=== PATIENT | female | born 1955 | race African-American/Black ===

== ENCOUNTER 2023-08-23 14:03 | Outpatient (AMB) | payer MEDICARE, SELFPAY ==
[2023-08-23 13:59] VITALS: BP 114/70; PULSE 86; O2SAT 99; BMI 25.1
--- NOTE | 2023-08-23 13:59 | HO.NEPHOV ---
HPI HPI Comments History of Present Illness Details Pleasant middle-aged woman with the resistant hypertension as essentially normal renal function here for follow-up. Today she has no specific renal issues. She has chronic low back pain due to L4-L5 disease. She has had steroid injections with minimal improvement PFSH Surgical History History of surgical removal of keloid Hx of tonsillectomy H/O: hysterectomy H/O section Family History Mother Mouth cancer Father Throat cancer Lung cancer Social History Household Members: Spouse Housing: House Alcohol intake: never Patient Tobacco Use Status: Never used Tobacco Vital Signs 08/23/23 13:59 Height 5 ft 3 in Weight 141 lb 8 oz BMI 25.1 BP 114/70 Blood Pressure Location Lt brachial Position Sitting Pulse 86 Pulse Source Pulse Oximeter Pulse Oximetry (%) 99 Oxygen Delivery Method Room Air Physical Exam Vital Signs: Last Vital Signs Pulse 86 08/23/23 13:59 BP 114/70 08/23/23 13:59 Pulse Ox 99 08/23/23 13:59 Oxygen Delivery Method Room Air 08/23/23 13:59 BMI result Body Mass Index 25.1 Const General: comfortable Nutritional Appearance: well nourished Orientation/consciousness: patient oriented x3 HEENT Head: No normal to inspection Mouth: moist mucous membranes Neck Neck: Yes supple and Yes no JVD Resp Auscultation: clear to auscultation bilaterally, no rales and rub present Cardio Jugular venous distension: no JVD Palpation: no palpable S3 and no palpable S4 Heart sounds: no rubs GI Palpation (GI): Soft to palpation and nontender Percussion: No Fluid wave present General: Yes no CVA tenderness Back/Spine/Pelvis Back: no CVA tenderness Skin General skin exam: no rashes or lesions noted Neuro General: patient oriented x3 Extrem General: Yes no pedal edema and No clubbing Assessment & Plan Assessment & Plan (1) HTN (hypertension): Code(s): I10 - Essential (primary) hypertension Plan Middle-aged woman with resistant hypertension and essentially normal renal function. Currently blood pressure is well controlled. She is able to tolerate all medications. Renal function stable. At this point I have not made any changes in her medications. Encouraged her to stand low-sodium diet. Self follow her closely along with the team Coding Level of Care Code Est Pt Level 3 (98010) Diagnoses HTN (hypertension) I10 Results Reviewed Results Reviewed: All labs labs reviewed MRI in February 2023 which revealed 4.4 x 3.8 x 2.1 cm circumscribed solid and cystic lesion posterior to left iliopsoas muscle is cystic neurogenic tumor is possible. Sarcomatous lesion in included in the differential diagnosis although a more infiltrative an aggressive appearance would be expected was the report Nephrology Results: No Data to Display
== END 2023-08-23 14:17 | disposition home or self-care (01) ==
PROVIDERS: Visit Provider Internal Medicine Hypertension Specialist
DX: I10 Essential (primary) hypertension (principal)
CPT/HCPCS: 99213

== ENCOUNTER → 2023-08-23 14:03 | Outpatient (BNVA) | payer MEDICARE, SELFPAY | PROVIDERS: Visit Provider Internal Medicine Hypertension Specialist | DX: I10 Essential (primary) hypertension (principal) | CPT/HCPCS: 99212 ==

== ENCOUNTER 2023-09-22 09:17 | Outpatient (AMB) | payer OTHER, SELFPAY ==
--- NOTE | 2023-09-22 09:34 | HO.SPINEOV ---
Intake Intake Visit Reasons: Low back pain Intake Note: Mrs. Stephens is here today c/o low back pain. MRI done @ [place]. [employer] Required: No Allergies lisinopril Allergy (Intermediate, Verified 08/23/23 14:04) Cough Assessment & Plan Assessment & Plan (1) Back pain of lumbar region with sciatica: Code(s): M54.40 - Lumbago with sciatica, unspecified side Plan Dear Damon and Dr Martinez, Thank you for referring Mrs Stephens to our office today. She is a very nice 68-year-old female presents to the office today with a 1 year history of back pain traveling down both of her legs into the outer calf and ankle region. The pain is significantly aggravated with standing and walking. She has had a significant reduction in her quality of life over the last year because of the pain. She also has trouble at night, when she is turning over in bed she will get severe cramping and spasms down her legs. She has tried Tylenol, muscle relaxers and gabapentin. They do help her because it makes her tired which helps her sleep. She cannot take anti-inflammatories because of kidney disease. She underwent physical therapy without any relief. She had dry needling therapy without much success. She underwent 2 successive L4 bilateral TFE which gave her good relief but the affect only lasted a few weeks. She comes today to see us with an MRI showing severe collapse of the disc at L4-5 with bilateral foraminal stenosis. PMH: History of hypertension, stage 3 kidney disease, high cholesterol, recently diagnosed with a left psoas mass, suspected to be possible schwannoma. She is due to see a general surgeon in [place] to have this evaluated. History of 4 C sections, hysterectomy, hemorrhoidectomy, keloid removal, tonsillectomy Social hx: She does not smoke, denies any alcohol, or recreational substance abuse Medications: Losartan, metoprolol, estrogen, low-dose aspirin, tramadol, lorazepam, tizanidine, omeprazole, ammonium, clonidine, cyclobenzaprine, hydrochlorothiazide Allergies: Lisinopril Physical exam: Awake alert oriented no acute distress, full strength of bilateral lower extremities with the exception of some mild left iliopsoas weakness which seems to be related the pain. Reflexes absent at the patella. Imaging review: Lumbar MRI done at [facility] in April 2023 shows multilevel spondylosis, but most significantly at L4-5 a severely collapsed disc, worse on the left, with significant foraminal stenosis on the left and some mild bilateral lateral recess stenosis. Impression: 68-year-old female presents to the office today for evaluation of back pain and bilateral lower extremity pain which goes down into her calves and her outer ankle. She has failed conservative treatment with the exception of a very nice response to 2 consecutive bilateral L4 TFE's which gave her 2 weeks of tremendous relief. She has a severely collapsed disc at L4-5 with foraminal stenosis, worse on the left and some lateral recess stenosis as well. Given the response to the injection and the MRI findings, I think she is a good candidate for surgery. Typically this is a situation where Dr. Bill would choose to do spinal fusion because of back pain and leg pain. Usually this would be an oblique lumbar interbody fusion approach. Because of her history of abdominal surgeries and the psoas mass on the left, I will need to review this with him see if he deems this approach is acceptable. Another consideration would be at TLIF or a trans Kambin approach. I reviewed the risks, benefits associated with spinal fusion surgery as well as quoting success for improvement in leg pain at 90%. I will call the patient back once I have a chance to speak with Dr. Bill. I will get a set of upright flexion-extension x-rays as well. Thank you for allowing us to care for your patient. The total time spent with this visit with this patient was 45 minutes reviewing history, physical exam, lumbar imaging review, and implementation of treatment plan or further diagnostic testing Rc Bill MD,PhD [facility] Orders: Orders XR lumbar spine 4V min Today M54.40 - Lumbago with sciatica, unspecified side Coding Level of Care Code New Pt Level 4 (02161) Diagnoses Back pain of lumbar region with sciatica M54.40
== END 2023-09-22 10:10 | disposition home or self-care (01) ==
PROVIDERS: PCP Internal Medicine; Referring Provider Physician Assistant; Visit Provider Physician Assistant
DX: M54.40 Lumbago with sciatica, unspecified side (principal)
CPT/HCPCS: 99204

== ENCOUNTER 2023-09-22 09:17 | Outpatient (REF) | payer OTHER, SELFPAY ==
--- NOTE | ~2023-09-22 | XR_ITS ---
EXAMINATION: XR LUMBOSACRAL SPINE WITH OBLIQUES CLINICAL INFORMATION: Sciatica COMPARISON: None available. TECHNIQUE: AP and lateral and lateral flexion and extension views FINDINGS: Vertebral bodies are well aligned. There is mild dextroscoliosis and straightening of lumbar lordosis. There is narrowing of L2-L3, L4-L5 intervertebral disc spaces without instability on flexion and extension views. There is no evidence of spondylolysis or listhesis. Soft tissues unremarkable XR/XR lumbar spine 4V min IMPRESSION: Degenerative changes with narrowing of L2-L3, L4-L5 intervertebral disc spaces.
== END 2023-09-22 09:18 | disposition home or self-care (01) ==
LOC: HO.HOSX 09:17
PROVIDERS: PCP Internal Medicine; Visit Provider Physician Assistant
DX: M54.40 Lumbago with sciatica, unspecified side (principal)
CPT/HCPCS: 72110

== ENCOUNTER → 2023-12-06 13:30 | Outpatient (BNV) | payer OTHER, SELFPAY | PROVIDERS: Admitting Provider Neurological Surgery; PCP Internal Medicine; Visit Provider Internal Medicine | DX: Z01.810 Encounter for preprocedural cardiovascular examination (principal); M54.40 Lumbago with sciatica, unspecified side | CPT/HCPCS: 93010 ==

== ENCOUNTER 2023-12-06 13:41 | Outpatient (AMB) | payer OTHER, SELFPAY ==
--- NOTE | 2023-12-06 14:12 | A.SPINEOV_ITS ---
Intake Intake Visit Reasons: Discuss surgery Intake Note: Ms. Stephens is here today to Discuss Sx. Director Of Dementia Operations Required: No Allergies lisinopril Adverse Reaction (Intermediate, Verified 12/05/23 09:02) Cough Assessment & Plan Assessment & Plan (1) Lumbar stenosis with neurogenic claudication: Code(s): M48.062 - Spinal stenosis, lumbar region with neurogenic claudication Plan Dear colleague, On 12/06/2023, I saw for preoperative visit Sudha Stephens. She states that in the last month the severe radiating pain down her right leg has disappeared. She is still having neurogenic claudication symptoms preventing her from walking or standing. We discussed the transkambin oblique lateral lumbar interbody fusion scheduled 12/19/2023. I briefly hoped that we could do a nonfusion but after reviewing of the patient's imaging that shows a unilateral collapse of the L4-5 disc space I would like to proceed with the minimally invasive lumbar fusion. Christian Bill MD, PhD Spine Fellowship Trained Neurosurgeon Director, [facility] Coding Level of Care Code Est Pt Level 3 (27808) Diagnoses Lumbar stenosis with neurogenic claudication M48.062
== END 2023-12-06 14:42 | disposition home or self-care (01) ==
LOC: HO.HNS 13:41
PROVIDERS: PCP Internal Medicine; Visit Provider Neurological Surgery
DX: M48.062 Spinal stenosis, lumbar region with neurogenic claudication (principal)
CPT/HCPCS: 99213

== ENCOUNTER → 2023-12-06 13:41 | Outpatient (BNVA) | payer OTHER, SELFPAY | PROVIDERS: PCP Internal Medicine; Visit Provider Neurological Surgery ==

== ENCOUNTER 2023-12-18 09:47 | Inpatient (IN) | payer MEDICARE, SELFPAY ==
--- NOTE | 2023-12-06 | ECG_ITS ---
Test Reason : preop Blood Pressure : / mmHG Vent. Rate : 063 BPM Atrial Rate : 063 BPM P-R Int : 170 ms QRS Dur : 072 ms QT Int : 398 ms P-R-T Axes : 060 017 054 degrees QTc Int : 407 ms Normal sinus rhythm Normal ECG No previous ECGs available Referred By: Heidy Reardon Electronically Signed By:HAILEE FREEMAN
[2023-12-06 12:20] VITALS: BP 123/77; PULSE 68; RESP 18; O2SAT 98; BMI 25.5
--- NOTE | 2023-12-06 12:41 | HO.ANESPROP2 ---
Documented by User: Heidy Reardon NP 12/07/23 08:45 HPI - Anesthesia Eval Consult details Narrative: 68yo F for L4-5 Transkambin Lumbar Interbody Fusion No recent illness No CP/SOB with > 4 mets (working multiple jobs, helps care for young great grandchildren) GERD. ppi controlls Psoas mass (left). Further w/u post spine surgery. Does not cause any symptoms Thrush. Current tx with nystatin. Recurrance ~ 6 times. ? r/t to use of lorazepam PMFSH Active Problems Active Problems: All Active Problems (Updated 12/06/23 @ 12:30 by Rocio Villafana RN) Back pain of lumbar region with sciatica (Acute) HTN (hypertension) (Acute) Past Medical History Medical History Thrush Bronchitis Arthritis GERD (gastroesophageal reflux disease) Psoas mass Elevated cholesterol Chronic renal insufficiency Back pain HTN (hypertension) Family History Family History Mother Mouth cancer Father Throat cancer Lung cancer Family history of problems with anesthesia: No Surgical History Surgical History H/O colonoscopy Hx of excision of mass Hx of hemorrhoidectomy History of surgical removal of keloid Hx of tonsillectomy H/O: hysterectomy H/O section History of Problems with Anesthesia: No Social History Social History Household Members: Spouse Housing: House Are you a primary career based intervention coordinator to a significant other at home: No Do you presently have visiting nurse or other home services: No Alcohol intake: never Patient Tobacco Use Status: Former Tobacco user Quit Date: 1980 Tobacco use type: Cigarette Use of substances other than those prescribed or required for medical reasons: No Have you been hit, kicked, punched, or otherwise hurt by someone within the past year? If so, by whom?: No Are you DNR?: No Advance Directives: No ( is primary contact) Advance Directives Information Provided: Yes (as above noted) Advance Directives on File: No Recently lost weight without trying: No Eating poorly because of decreased appetite: No Nutrition Risks: No Nutritional Risk Poor oral hygiene: No (upper & lower partials) Meds Allergies Allergy/AdvReac Type Severity Reaction Status Date / Time lisinopril AdvReac Intermediate Cough Verified 12/18/23 10:36 Home Medications Medication Instructions Recorded Confirmed Last Taken Type albuterol sulfate 90 mcg/actuation 2 puff inhalation Q4H PRN 08/23/23 12/06/23 Unknown History aerosol inhaler Shortness Of Breath Or Wheezing aspirin 81 mg tablet,delayed 81 mg PO QPM 08/23/23 12/18/23 12/17/23 History release (Adult Aspirin Regimen) atorvastatin 20 mg tablet 20 mg PO BEDTIME 08/23/23 12/18/23 12/17/23 History clonidine HCl 0.1 mg tablet 0.2 mg PO BEDTIME 08/23/23 12/18/23 12/17/23 History cyclobenzaprine 5 mg tablet 5 mg PO BEDTIME PRN Muscle Spasm 08/23/23 12/06/23 Unknown History gabapentin 600 mg tablet 300 mg PO TID 08/23/23 12/18/23 12/17/23 History hydrochlorothiazide 25 mg tablet 25 mg PO QPM 08/23/23 12/18/23 12/17/23 History lorazepam 0.5 mg tablet 0.5 mg PO DAILY PRN Anxiety 08/23/23 12/18/23 12/18/23 History losartan 100 mg tablet 100 mg PO QPM 08/23/23 12/18/23 12/17/23 History magnesium oxide 400 mg (241.3 mg 400 mg PO QPM 08/23/23 12/18/23 12/17/23 History magnesium) tablet metoprolol succinate 100 mg 100 mg PO QPM 08/23/23 12/18/23 12/17/23 History tablet,extended release 24 hr omeprazole 20 mg capsule,delayed 20 mg PO QPM 08/23/23 12/18/23 12/17/23 History release tizanidine 4 mg tablet 4 mg PO BID PRN Muscle Spasm 08/23/23 12/06/23 Unknown History trazodone 100 mg tablet 100 mg PO BEDTIME 08/23/23 12/18/23 12/17/23 History Exam Height,Weight and Vital Signs: Height 5 ft 3 in Weight 65.317 kg Last Vital Signs Pulse 68 12/06/23 12:20 Resp 18 12/06/23 12:20 BP 123/77 12/06/23 12:20 Pulse Ox 98 12/06/23 12:20 O2 Del Method Room Air 12/06/23 12:20 Pertinent Lab Results Pertinent Lab Results: Laboratory Last Values WBC 7.9 X10*3/uL (4.8-10.8) 12/06/23 13:20 RBC 4.91 X10*6/uL (4.20-5.50) 12/06/23 13:20 Hgb 13.7 g/dl (12.0-16.0) 12/06/23 13:20 Hct 43.1 % (37.0-47.0) 12/06/23 13:20 MCV 87.8 fL (80.0-98.0) 12/06/23 13:20 MCH 27.9 pg (27.0-33.0) 12/06/23 13:20 MCHC 31.8 g/dl (31.0-35.0) 12/06/23 13:20 RDW 14.6 % (11.0-16.0) 12/06/23 13:20 Plt Count 296 X10*3/uL (160-400) 12/06/23 13:20 MPV 9.2 fL (9.4-12.3) L 12/06/23 13:20 Absolute Nucleated RBC 0.000 X10*3/uL (0.0-0.012) 12/06/23 13:20 Nucleated RBC % (auto) 0.0 /100WBC (0.0-0.2) 12/06/23 13:20 Sodium 138 mmol/L (135-145) 12/06/23 13:20 Potassium 4.1 mmol/L (3.3-5.1) 12/06/23 13:20 Chloride 100 mmol/L (96-108) 12/06/23 13:20 Carbon Dioxide 31 mmol/L (22-29) H 12/06/23 13:20 Anion Gap 11 (12-20) L 12/06/23 13:20 BUN 24 mg/dL (9-16) H 12/06/23 13:20 Creatinine 1.20 mg/dL (0.5-1.4) 12/06/23 13:20 Estim Creat Clear Calc 39.6 12/06/23 13:20 Estimated GFR 44 12/06/23 13:20 Random Glucose 94 mg/dL (60-115) 12/06/23 13:20 Calcium 10.0 mg/dL (8.4-10.2) 12/06/23 13:20 Narrative Narrative: EKG 11/2023 Vent. Rate : 063 BPM Atrial Rate : 063 BPM P-R Int : 170 ms QRS Dur : 072 ms QT Int : 398 ms P-R-T Axes : 060 017 054 degrees QTc Int : 407 ms Normal sinus rhythm Normal ECG No previous ECGs available Airway Mallampati Class: II TM Dist: >3cm Neck ROM: Full Partial: Upper and Lower Heart: RRR Lungs: CTAB Assessment and Plan Assessment Anesthesia Assessment: Anesthesia Plan Discussed and PAT Visit Final Anesthetic Review Family History of Problems with Anesthesia: No History of Problems with Anesthesia: No Documented by User: Carmen Arriaza MD 12/18/23 11:45 PMFSH Active Problems Active Problems: All Active Problems (Updated 12/18/23 @ 11:22 by Carmen Arriaza MD) Back pain of lumbar region with sciatica (Acute) HTN (hypertension) (Acute) Intermittent cough this morning- Patient states tickle in throat from dryness Anxiety Insomnia Hyperlipidemia Past Medical History Medical History Thrush Bronchitis Arthritis GERD (gastroesophageal reflux disease) Psoas mass Elevated cholesterol Chronic renal insufficiency Back pain HTN (hypertension) Family History Family History Mother Mouth cancer Father Throat cancer Lung cancer Family history of problems with anesthesia: No Surgical History Surgical History H/O colonoscopy Hx of excision of mass Hx of hemorrhoidectomy History of surgical removal of keloid Hx of tonsillectomy H/O: hysterectomy H/O section History of Problems with Anesthesia: No Social History Social History Household Members: Spouse Housing: House Are you a primary career based intervention coordinator to a significant other at home: No Do you presently have visiting nurse or other home services: No Alcohol intake: never Patient Tobacco Use Status: Former Tobacco user Quit Date: 1980 Tobacco use type: Cigarette Use of substances other than those prescribed or required for medical reasons: No Have you been hit, kicked, punched, or otherwise hurt by someone within the past year? If so, by whom?: No Are you DNR?: No Advance Directives: No ( is primary contact) Advance Directives Information Provided: Yes (as above noted) Advance Directives on File: No Recently lost weight without trying: No Eating poorly because of decreased appetite: No Nutrition Risks: No Nutritional Risk Poor oral hygiene: No (upper & lower partials) Meds Allergies Allergy/AdvReac Type Severity Reaction Status Date / Time lisinopril AdvReac Intermediate Cough Verified 12/18/23 10:36 Home Medications Medication Instructions Recorded Confirmed Last Taken Type albuterol sulfate 90 mcg/actuation 2 puff inhalation Q4H PRN 08/23/23 12/06/23 Unknown History aerosol inhaler Shortness Of Breath Or Wheezing aspirin 81 mg tablet,delayed 81 mg PO QPM 08/23/23 12/18/23 12/17/23 History release (Adult Aspirin Regimen) atorvastatin 20 mg tablet 20 mg PO BEDTIME 08/23/23 12/18/23 12/17/23 History clonidine HCl 0.1 mg tablet 0.2 mg PO BEDTIME 08/23/23 12/18/23 12/17/23 History cyclobenzaprine 5 mg tablet 5 mg PO BEDTIME PRN Muscle Spasm 08/23/23 12/06/23 Unknown History gabapentin 600 mg tablet 300 mg PO TID 08/23/23 12/18/23 12/17/23 History hydrochlorothiazide 25 mg tablet 25 mg PO QPM 08/23/23 12/18/23 12/17/23 History lorazepam 0.5 mg tablet 0.5 mg PO DAILY PRN Anxiety 08/23/23 12/18/23 12/18/23 History losartan 100 mg tablet 100 mg PO QPM 08/23/23 12/18/2312/16/24 History magnesium oxide 400 mg (241.3 mg 400 mg PO QPM 08/23/23 12/18/23 12/17/23 History magnesium) tablet metoprolol succinate 100 mg 100 mg PO QPM 08/23/23 12/18/23 12/17/23 History tablet,extended release 24 hr omeprazole 20 mg capsule,delayed 20 mg PO QPM 08/23/23 12/18/23 12/17/23 History release tizanidine 4 mg tablet 4 mg PO BID PRN Muscle Spasm 08/23/23 12/06/23 Unknown History trazodone 100 mg tablet 100 mg PO BEDTIME 08/23/23 12/18/23 12/17/23 History Exam Height,Weight and Vital Signs: Height 5 ft 3 in Weight 65.317 kg Last Vital Signs Pulse 68 12/06/23 12:20 Resp 18 12/06/23 12:20 BP 123/77 12/06/23 12:20 Pulse Ox 98 12/06/23 12:20 O2 Del Method Room Air 12/06/23 12:20 Vital Signs Temp Pulse Resp BP Pulse Ox O2 Del Method 12/18/23 11:02 97.3 F 97 16 128/93 H 99 Room Air Airway Mallampati Class: II TM Dist: >3cm Neck ROM: Full Partial: Upper and Lower Loose/Missing/Broken Teeth: Yes (Partials top and bottom. Denies broken or loose teeth) Assessment and Plan Assessment Anesthesia Assessment: Anesthesia Plan Discussed, PAT Visit and Chart Reviewed Final Anesthetic Review Family History of Problems with Anesthesia: No History of Problems with Anesthesia: No NPO: Yes ASA Class: II Final Preanesthetic Review: No Changes in Pt Med Stat, Meds/Allgs Chart Reviewed, Consent Obtained/Reviewed and Anes Risks/Benef Reviewed Patient Risk: Intermediate Procedure Risk: Intermediate Assessment/Block/Sedation in SS: Assess/Block/Sedation-SS Anesthetic Plan Anesthetic Plan: GA Disposition: Standard PACU and Inp. Admit - Standard Bed
[2023-12-06 14:08] LABS: Hematocrit 43.1 % (37.0-47.0); Hemoglobin 13.7 g/dl (12.0-16.0); Mean Corpuscular HGB Conc 31.8 g/dl (31.0-35.0); Mean Corpuscular Hemoglobin 27.9 pg (27.0-33.0); Mean Corpuscular Volume 87.8 fL (80.0-98.0); Mean Platelet Volume 9.2 fL (9.4-12.3); Platelet Count 296 X10*3/uL (160-400); Red Blood Count 4.91 X10*6/uL (4.20-5.50); Red Cell Distribution Width 14.6 % (11.0-16.0); White Blood Count 7.9 X10*3/uL (4.8-10.8)
[2023-12-06 14:41] LABS: Anion Gap 11 (12-20); Blood Urea Nitrogen 24 mg/dL (9-16); Carbon Dioxide 31 mmol/L (22-29); Chloride 100 mmol/L (96-108); Creatinine Clr Calc Pharmacy 39.6; Estimated Glomerular Filt Rate 44; Glucose Random 94 mg/dL (60-115); Potassium 4.1 mmol/L (3.3-5.1); Sodium 138 mmol/L (135-145)
[2023-12-18] VITALS (12 sets, daily range): BP systolic 106–140; BP diastolic 68–93; PULSE 86–104; RESP 14–18; TEMP 36.1–36.5; O2SAT 94–100
--- NOTE | ~2023-12-18 | FL_ITS ---
EXAMINATION: XR FLUOROSCOPY WITH IMAGES CLINICAL INFORMATION: L4-L5 trans kambin lumbar interbody fusion COMPARISON: Lumbar spine 09/22/2023 TECHNIQUE: Fluoroscopy Supervised By: Dr. Bill. Fluoroscopy Time: 1.52 minutes. Cumulative Dose: 52.28 mGy. DAP: 16.921 Gycm2. Images: 2. FINDINGS: Fluoroscopic AP and lateral views of the L4 and L5 vertebral bodies with screws, fusion rods and interbody disc spacer are obtained. See intraoperative report for full details. FL/FL guidance in OR IMPRESSION: Fluoroscopic guidance was provided for L4-L5 trans kambin lumbar interbody fusion.
--- NOTE | 2023-12-18 07:04 | MHC.SHP ---
Pre-Procedural Eval Section A - 24 Hr Update-Section A only Date of Service: 12/18/23 The patient is an INPATIENT: No Changes since office visit: No Cold of Flu in the past 2 weeks, No New Medical Problems, No Changes in Medication and No Patient answered all questions The patient has been examined within 24 hours of the surgical procedure. The History & Physical has been completed within 30 days and I have reviewed it.: No Section B - Complete if H&P > 30 days Chief Complaint: Lumbago with sciatica, unspecified side Allergies: Allergies Allergy/AdvReac Type Severity Reaction Status Date / Time lisinopril AdvReac Intermediate Cough Verified 12/05/23 09:02 Review of Systems Sugical H&P ROS: Negative: Constitution, Cardiovascular, Respiratory, Neurological, Psychiatric, Hem-Onc, Allergic/Immunologic, Gastrointestinal, Genitourinary, Musculoskeletal, Integumentary, Endocrine and Eyes/Ears/Nose/Throat Exam Surgical H&P Exam: Not Evaluated: HEENT, Not Evaluated: Heart, Not Evaluated: Lungs, Not Evaluated: Extremities, Not Evaluated: Abdomen, Not Evaluated: Skin and Not Evaluated: Neurological Plan Diagnosis/Plan: Unchanged L4-5 Transkambin interbody fusion Time Spent With Patient Time: Total time managing care of this patient today 7____ minutes.
--- OUTSIDE RECORDS SUMMARY | 2023-12-18 09:50 | XMS_ITS | Continuity of Care Document ---
Author Name Unknown Organization [facility] Address [address] [place] [address]- Care Team Providers Care Application Development Intern Name Role Phone Not on Staff, PCP Primary Care Physician Unavail able Encounter [facility] Date(s): 07/15/23 - 07/15/[address] [address]- Discharge Disposition: A-D/C Home Attending Physician: Wili Guadarrama MD Admitting Physician: Wili Guadarrama MD Referring Physician: Not on Staff, Referring MD Allergies, Adverse Reactions, Alerts Substance Reaction Severity Status lisinopril Active Medications albuterol CFC free 90 mcg/inh inhalation aerosol 2, puffs, Inhalation, 4 times a day, PRN, # 1 each, Refills 0, Tot. Refills 0, Maintenance, 07/15/23 20:09:00 EDT, Aerosol, Route to Pharmacy Electronically, [id number], [facility] 1969, 160, cm, 07/15/23 18:38:00 EDT,... Start Date: 07/15/23 Status: Ordered Results Radiology Reports * Exam Date Time Procedure Performing Provider Status 07/15/23 7:03 PM Chest 2 Views Frontal and Lat Amilcar Abreu T; Auth (Verified) Notes: (Chest 2 Views Frontal and Lat) Reason For Exam: SOB;Cough RESULT: Chest 2 Views Frontal and Lat Chest 2 Views Frontal and Lat Hx of Present Illness: Body aches, nasal congestion, chest pain, and a non- productive cough x 2 weeks.; Reason: Cough; SOB; Clinical Question(s): Pneumonia; Special Instructions: This is a protocol film and radiologist should call any findings to the Charge Nurse or appropriate provider COMPARISON: None. FINDINGS: LINES AND TUBES: None. LUNGS AND PLEURA: Clear lungs. Normal pulmonary vascularity. No pleural effusion. No pneumothorax. HEART, MEDIASTINUM AND JHONATAN: Heart is normal in size. Normal mediastinal and hilar contour. BONES AND SOFT TISSUES: No acute abnormality. IMPRESSION: No acute abnormality. WSN: [id number] Ordering Physician: Guy Zepeda Dictated By: Jesus Luciano MD Dictated Date/Time: 07/15/23 7:08 pm Reviewed By: Jesus Luciano MD Signed By: Jesus Luciano MD Signed Date/Time: 07/15/23 7:08 pm Transcribed By: HAKAN Transcribed Date/Time: 07/15/23 7:08 pm Vital Signs Most recent to oldest [Reference Range]: 1 2 3 Height 160 cm (07/15/23 6:38 PM) Weight 65.2 kg (07/15/23 6:38 PM) Oxygen Saturation [94-100 %] 98 % (07/15/23 8:25 PM) 98 % (07/15/23 6:38 PM) 99 % (07/15/23 6:37 PM) Pulse Rate [55-90 bpm] 90 bpm (07/15/23 8:25 PM) 112 bpm *H* (07/15/23 7:32 PM) 88 bpm (07/15/23 6:38 PM) Blood Pressure [90-138/55-84 mm Hg] 150/80mm Hg *H* (07/15/23 8:25 PM) 140/88mm Hg *H* (07/15/23 6:38 PM) Respiratory Rate [16-30 br/min] 20 br/min (07/15/23 8:25 PM) 20 br/min (07/15/23 7:32 PM) 16 br/min (07/15/23 6:38 PM) Temperature [96.8-100.4 DegF] 98 DegF (07/15/23 6:38 PM) Mode of Delivery (Oxygen) Room air (07/15/23 6:38 PM) Room air (07/15/23 6:37 PM) Blood pressure sites Arm, left (07/15/23 8:25 PM) Arm, left (07/15/23 6:38 PM) Temperature Route Temporal (07/15/23 6:38 PM) Dry Weight 65.2 kg (07/15/23 6:38 PM) Weight Obtained Via Standing scale (07/15/23 6:38 PM) Dry Weight Obtained Via Standing scale (07/15/23 6:38 PM) Patient Care team information Care Team Personnel Name: Not on Staff, PCP Position: [facility] Physician (General Medicine) Member Role: PCP Name: Santi Robbins RN Position: [facility] ED RN W/OE and Tasks Member Role: Patient Care Provider Name: Wili Guadarrama MD Position: [facility] ED Medicine MD Member Role: Admitting Physician Address: Address: [address] [place] [address]- [place] [address]- Name: Shelby Berumen Position: [facility] ED [facility] Member Role: Wine Cellar Worker Care Team Related Persons Name: CHAKANURIA Address: [address] [address]
--- NOTE | 2023-12-18 09:55 | PHA.MEDREC ---
Pharmacy Consult ? Medication Reconciliation Pharmacy has completed the medication reconciliation. Reviewed med rec done by nursing
[2023-12-18] MEDS: Lactated Ringers 1,000 ML 100 ML IVCONT (10:08)
[2023-12-18] MEDS: Gabapentin 300 MG CAPSULE PO (10:09)
[2023-12-18] MEDS: methocarbamoL 750 MG TABLET PO (10:09)
--- NOTE | 2023-12-18 13:11 | W.PM.OPN ---
Operative Note Operative Note Date of Service: 12/18/23 Narrative: Preoperative diagnosis: 1) back pain and neurogenic claudication 2) lumbar degenerative disc disease L4-5; central spinal stenosis; lumbar spondylolisthesis Postprocedure diagnosis: 1) same as above Procedure: 1) L4-5 oblique lateral lumbar interbody fusion with discectomy, preparation of the endplates and placement of a titanium bullet cage packed with allograft, anterior to the transverse process in modified prone position, with intraoperative biplanar fluoroscopy imaging and electrophysiological monitoring 2) L4-5 posterior minimally invasive pedicle screw placement and posterior lateral instrumentation and fusion with intraoperative biplanar fluoroscopic imaging and electrophysiological monitoring 3 injection of 10 cc of Exparel at the L4 transverse process for a muscular erector spinae block and additional Exparel in paravertebral tissue for postop management Consent Informed Consent was obtained for this operation. I have explained the nature, purpose and benefits of the operation. I have discussed the risks and benefit of the operation including possible complications or adverse events with patient/family. Alternative(s) were discussed with the patient with their relative benefits and risks as well as the consequences of not accepting the operation were included in obtaining consent. Surgeon: TREVOR BARRETT MD, PHD Procedure Assisted By: orlin Hunter Description of Procedure: This is a complex surgery on the lumbar spine and an higher level teaching assistant as needed for safety of the surgery for setup of instrumentation, retraction and closing. History: This 68-year-old female suffering from back pain and bilateral leg pain with walking and standing. Initially shows a constant lumbar radiculopathy which improved. MRI shows unilateral disc collapse of the L4-5 disc space and associated central spinal stenosis and a grade 1 lumbar spondylolisthesis. The patient was offered an oblique lumbar lateral interbody fusion followed by a posterior lateral instrumented fusion L4-5. The procedure and complications were explained and the patient was consented. Procedure: The patient was brought to the operating room and endotracheally intubated. The patient was positioned on the Denilson spine table in a modified prone position for ease of access from the left side.. 2C arms were installed for fluoroscopy. Prepping and draping was done followed by timeout. The landmarks, including spinal processes, transverse processes, disc space, endplates and pedicles are identified and marked. The following steps are taken for each specified level: L4-5 level: Cage size 10 mm high and 33 mm long titanium . The patient was turned using the rotation of the surgical table so a near direct anterior lateral approach to the lumbar spine could be achieved. A small incision was then made superior to the mid iliac crest and then using biplanar fluoroscopy visualization, under electrophysiological monitoring and stimulation, we introduced an electrophysiological probe through the retroperitoneal space into the desired disc anterior to the transverse process and then passed it into the disc space after finding a silent window. The sleeve was retained and the probe was removed, then the K wire was passed sequentially into the disc space. A dilating tube was then passed along the same route. Following this, a working channel, a working channel was then passed sequentially into the disc space. The working channel was manually held in position while a series of disc cleaning tools were passed through the channel to remove the affected disc under clear and direct biplanar fluoroscopic visualization, decompress the nerve roots and equal corticated vertebral endplates at this segment. Arthrodesis of the intervertebral space via an anterior retroperitoneal exposure was achieved through Kambin's Stout and lateral extraforaminal space. Allograft was added into the anterior disc space. The working channel was then removed. A titanium interbody cage tightly packed with allograft was then inserted into the midportion of the intervertebral disc space over a K-wire under biplanar fluoroscopic visualization and intraoperative neuro monitoring. The inter pedicular and intradiscal space was significantly enlarged and disc height was restored to worked normal anatomy there for releasing pressure on the nerve roots visual largely the spinal canal and lateral recess as well as foramen were bilateral decompressed and all bones were confined to the borders of the disc space . The following steps are then taken for each specified level: L4-5 level: Left L5 screw with a diameter of 6.5 x 45 mm, right L5 screw with a diameter of 6.5 x 40 mm. Bilateral L5 screws with a diameter of 6.5 x 40 mm. The posterolateral fusion is initiated after the patient is rotated to a true prone position. The entry point to the pedicle is identified in the AP and lateral views and then the skin incision is injected with local anesthetic. We entered the pedicle with the pediguard tap after which a K-wire was introduced into the vertebral body. Additionally, I used a small periosteal decorticator along the screws to refresh the surface of the bone and facet and I put some amount of allograft for additional stability for the posterolateral fusion. Over the K-wire we insert pedicle screws bilaterally. After the screws were placed, we put the alyssa in place and under fluoroscopic imaging, we locked the alyssa in place and removed the screw tops and then each incision has been closed with 0 Vicryl for the fascia and a 3-0 Vicryl for the subdermal layer. Steri-Strips were used to approximate the incisions. An OpSite with Tegaderm was used to cover the incision. Final x-rays and AP and lateral projection showed good position of the interbody device and instrumentation. All sponge and needle counts were correct. The patient was extubated and transported in a stable condition to the recovery room. 2-0 Vicryl This procedure was done with the aid of a physician higher level teaching assistant as a qualified resident was not available. Anesthesia: General Estimated Blood Loss (ml): 15 mL Specimen: None Duration of Surgery: 50 minutes Postoperative Plan: Admit to inpatient
[2023-12-18] MEDS: Ketorolac Tromethamine 15 MG/ML VIAL IVPUSH ×2 (15:31→18:42)
[2023-12-18] MEDS: 0.9 % Sodium Chloride 1,000 ML 75 ML IVCONT (16:10)
[2023-12-18] MEDS: oxyCODONE HCl Immed Release 5 MG TABLET 10 MG PO ×2 (16:12→20:16)
[2023-12-18] MEDS: Gabapentin 600 MG TABLET 300 MG PO ×2 (16:13→20:16)
[2023-12-18] MEDS: Omeprazole 20 MG CAPSULE.DR PO (16:13)
[2023-12-18] MEDS: hydrOXYzine HCL 25 MG TABLET PO ×2 (16:13→20:17)
[2023-12-18] MEDS: Losartan Potassium 50 MG TABLET 100 MG PO (16:13)
[2023-12-18] MEDS: Metoprolol Succinate ER 100 MG TAB.ER.24H PO (16:13)
[2023-12-18] MEDS: Magnesium Oxide 400 MG TABLET PO (16:13)
[2023-12-18] MEDS: Acetaminophen 1,000 MG/100 ML PIGGYBACK 400 MG IV (18:42)
[2023-12-18] MEDS: ceFAZolin Sodium/Dextrose,Iso 2 GM/50 ML PIGGYBACK IV (19:11)
[2023-12-18] MEDS: hydroCHLOROthiazide 25 MG TABLET PO (20:16)
[2023-12-18] MEDS: traZODone HCL 100 MG TABLET PO (20:16)
[2023-12-18] MEDS: Docusate Sodium 100 MG CAPSULE PO (20:16)
[2023-12-18] MEDS: cloNIDine HCL 0.2 MG TABLET PO (20:17)
[2023-12-18] MEDS: Atorvastatin Calcium 20 MG TABLET PO (20:17)
[2023-12-19] MEDS: Acetaminophen 1,000 MG/100 ML PIGGYBACK 400 MG IV ×2 (00:14→06:20)
[2023-12-19] MEDS: ceFAZolin Sodium/Dextrose,Iso 2 GM/50 ML PIGGYBACK IV ×2 (00:34→06:43)
[2023-12-19 00:44] VITALS: RESP 18
[2023-12-19] MEDS: Ketorolac Tromethamine 15 MG/ML VIAL IVPUSH ×2 (02:04→07:40)
[2023-12-19 03:42] VITALS: BP 99/58; PULSE 72; RESP 16; TEMP 36.1; O2SAT 97
[2023-12-19] MEDS: hydrOXYzine HCL 25 MG TABLET PO (05:38)
[2023-12-19] MEDS: 0.9 % Sodium Chloride 1,000 ML 75 ML IVCONT (06:19)
[2023-12-19 06:50] VITALS: RESP 18
[2023-12-19 07:24] VITALS: BP 100/60; PULSE 73; RESP 14; TEMP 36.4; O2SAT 96
--- NOTE | 2023-12-19 07:26 | PM.DS ---
DS: Providers Provider Date of Service: 12/19/23 Date of admission: 12/18/23 09:47 Primary care physician: Laury Cartagena MD DS: Summary Time Attestation Discharge Coordination Time (in mins): 20 Quality: Safe Use of Opioids Does Pt have an Active Cancer Diagnosis on the Problem List?: No Quality: Stroke Does the patient have a stroke diagnosis?: No Physical Exam Vital Signs: Vital Signs: Last Vital Signs Temp 97.0 F 12/19/23 03:42 Pulse 72 12/19/23 03:42 Resp 18 12/19/23 06:50 BP 99/58 L 12/19/23 03:42 Pulse Ox 97 12/19/23 03:42 O2 Del Method Room Air 12/19/23 03:42 O2 Flow Rate 2 12/18/23 15:04 BMI result Body Mass Index 25.5 Discharge Plan Discharge Anticipated Discharge Date/Time: 12/19/23 07:26 Patient Disposition: Home, Self-Care Discharge Diagnosis: s/p L4-5 Transkambin lumbar fusion Referrals: Laury Cartagena MD [Primary Care Provider] - 1 Week Discharge Medications: New methocarbamol 750 mg tablet 750 mg PO TID Qty: 30 0RF hydroxyzine HCl 25 mg tablet 25 mg PO TID PRN (Reason: muscle cramping) Qty: 30 0RF oxycodone 5 mg tablet 5 mg PO Q6H PRN (Reason: severe pain (scale score 7-10)) Qty: 30 0RF Rx Instructions: Partial Fill upon patient request. acetaminophen 500 mg tablet 1,000 mg PO TID PRN (Reason: moderate pain) Qty: 42 0RF Continued cyclobenzaprine 5 mg tablet 5 mg PO BEDTIME PRN (Reason: Muscle Spasm) losartan 100 mg tablet 100 mg PO QPM metoprolol succinate 100 mg tablet extended release 24 hr 100 mg PO QPM gabapentin 600 mg tablet 300 mg PO TID lorazepam 0.5 mg tablet 0.5 mg PO DAILY PRN (Reason: Anxiety) clonidine HCl 0.1 mg tablet 0.2 mg PO BEDTIME tizanidine 4 mg tablet 4 mg PO BID PRN (Reason: Muscle Spasm) albuterol sulfate 90 mcg/actuation HFA aerosol inhaler 2 puff inhalation Q4H PRN (Reason: Shortness Of Breath Or Wheezing) trazodone 100 mg tablet 100 mg PO BEDTIME omeprazole 20 mg capsule,delayed release(DR/EC) 20 mg PO QPM hydrochlorothiazide 25 mg tablet 25 mg PO QPM magnesium oxide 400 mg (241.3 mg magnesium) tablet 400 mg PO QPM atorvastatin 20 mg tablet 20 mg PO BEDTIME aspirin [Adult Aspirin Regimen] 81 mg tablet,delayed release (DR/EC) 81 mg PO QPM Discharge Orders: Discharge Order (Routine); Ordered 12/19/23 Ordered By: Zheng Yun Diet: Advance to usual diet Activity on Discharge: As tolerated Stand Alone Forms: Patient Portal Discharge page Activity Restrictions/Additional Instructions: After your spinal surgery we ask you to observe the following restrictions/guidelines: Activity: With lumbar fusion surgery it is normal to have days in the first couple of weeks where you have increased leg pain. This usually lasts 1-2 days and self resolves with the continuation of medication. Attempt to stay mobile and continue activity as tolerated. It is normal to feel some discomfort as you increase your activity, but that will improve with time. We ask you avoid heavy lifting or activities that cause pain. As a general rule, 8lbs is a safe limit for lifting right after surgery. Walk as much as you feel comfortable but not to exhaustion. You will feel extra tired the first few days after surgery. Stay well hydrated. It is OK to walk up and down stairs You may return to driving when you are off narcotics (such as vicodin, oxycodone, dilaudid, etc), and you are back to normal functional capacity. If you have any concerns please check with office before driving. Return to work is specific to each patient and each surgery, so please speak with your doctor/PA at first follow up. Please bring paperwork such as FMLA at that time if you need it filled out. Medications: We have sent in prescriptions for Tylenol 1000 mg 3 times daily, hydroxyzine 25 mg 3 times daily, and Robaxin 750 mg 3 times daily. your currently prescribed gabapentin, please continue to take this as prescribed. We will give you a short supply of narcotics after surgery (usually one weeks worth). ??Please use this for breakthrough pain that is refractory to the Tylenol ibuprofen and gabapentin. If you need more please call the office but do not use more than prescribed. You will need to give our office 48 hours notice if you need narcotics refilled and we do not fill narcotics on weekends or evenings. If you are on a narcotic, it is a good idea to take a stool softener such as colace or senna to avoid constipation If you take blood thinner such as aspirin, Plavix, Coumadin, Effient, Eliquis etc for conditions such as Afib, DVT, Pulmonary embolus, coronary disease, stents etc please speak with your surgeon about specific details as to when you can resume these medications. You can resume NSAIDs on post op day 1 (eg: Motrin, Naproxen, etc). Follow up: Please call the office, , after surgery to arrange a 3 week follow up for wound check. Wound Care: You may remove your dressing on the first day after surgery. ?You may ?leave open to air. Please do not remove the steri strips underneath. they will fall off on their own in one week. IT IS NORMAL FOR THE WOUND TO OOZE OR BE BLOODY FOR A FEW DAYS AFTER SURGERY. ?IF THIS HAPPENS JUST PLACE NEW DRESSING OVER IT TO AVOID STAINING CLOTHES. You may shower on post op day # 1 We ask that you do not let the water soak the wound. If it does get wet, just towel dry lightly. Please do not scrub your incision or place any type of chemical/ointment on the wound. No tub baths, pools or jacuzzis for one month. If you have any leaking or redness from your wound, or fevers, please call office Care Plan Goals: Return to normal activity as tolerated. Health Concerns: None. Plan of Treatment: Follow-up in clinic in 2-3 weeks. Assessment: POD: 1 Procedure: s/p L4-5 Transkambin lumbar fusion Sudha was seen this morning sitting upright in bed on 3 South. Patient reports she is up walking around is otherwise doing well. She feels her symptoms are much better than pre-operatively. She reports no back pain and no lower extremity pain at this time. She is ambulating to bathroom and tolerating her diet. Afebrile, vital signs stable. No new neurological deficits. Back dressings have some staining without signs of hematoma. No active sanguineous drainage. Area is dry. Plan: Patient meets criteria to be medically discharged home. We did discuss the postoperative healing course for the surgery, and she was informed that the approach causes what we compare to a low-grade burn on the nerve which will likely cause her some residual leg pain in the coming days. She was encouraged to continue the postoperative medication regimen that we sent to her pharmacy. Zheng Bill MD,PhD [facility]
[2023-12-19] MEDS: Gabapentin 600 MG TABLET 300 MG PO (07:41)
[2023-12-19] MEDS: Docusate Sodium 100 MG CAPSULE PO (07:42)
[2023-12-19 07:45] VITALS: BP 100/60; PULSE 73; O2SAT 96
--- NOTE | 2023-12-19 08:40 | MHC.CM.PN ---
IMM DELIVERED PT LIVES WITH SPOUSE, IS INDEPENDENT WITH MOBILITY AND +DRIVES. EMPLOYED F/T. WILL DO HCP WHILE HERE. PCP DR. GUME MELLO DP: PT HAS BEEN MEDICALLY CLEARED FOR DC HOME, NO SERVICES. [facility] WILL TRANSPORT HOME. CM WILL CONTINUE TO FOLLOW FOR ANY CHANGE IN DC PLAN/NEEDS.
[2023-12-19] MEDS: oxyCODONE HCl Immed Release 5 MG TABLET PO (09:45)
--- NOTE | 2023-12-19 11:42 | HO.POSTANES ---
Post Anesthesia Evaluation Post Anesthesia Evaluation Date of Service: 12/19/23 Vital Signs: Vital Signs Temp Pulse Resp BP Pulse Ox O2 Del Method 12/19/23 07:45 73 100/60 96 12/19/23 07:24 97.5 F 73 14 100/60 96 Room Air 12/19/23 06:50 18 12/19/23 03:42 97.0 F 72 16 99/58 L 97 Room Air 12/19/23 00:44 18 Anesthesia: General Endotracheal-GETA Mental Status: Awake Pain Control: Satisfactory Nausea/Vomiting: None Hydration: Adequate Anesthesia-Related Issues: No Anes. Related Issues
== END 2023-12-19 10:04 | disposition home or self-care (01) | DRG 460 ==
LOC: HO.SSSA 09:49 → HO.S3 15:14
PROVIDERS: Nurse Practitioner; Admitting Provider Neurological Surgery; PCP Internal Medicine; Visit Provider Neurological Surgery
PROC: 0SG00A0 Fusion of Lumbar Vertebral Joint with Interbody Fusion Device, Anterior Approach, Anterior Column, Open Approach (ICD-10-PCS; principal; 2023-12-18 11:30)
DX: M48.062 Spinal stenosis, lumbar region with neurogenic claudication (principal); M51.36 Other intervertebral disc degeneration, lumbar region; D36.10 Benign neoplasm of peripheral nerves and autonomic nervous system, unspecified; E78.00 Pure hypercholesterolemia, unspecified; I12.9 Hypertensive chronic kidney disease with stage 1 through stage 4 chronic kidney disease, or unspecified chronic kidney disease; N18.30 Chronic kidney disease, stage 3 unspecified; Z87.891 Personal history of nicotine dependence; Z79.82 Long term (current) use of aspirin; Z79.899 Other long term (current) drug therapy
CPT/HCPCS: 36415; 80048; 85027; 93005; 97162; C1713; C9290; J0131; J0330; J0665; J0690; J1100; J1170; J1885; J2371; J2405; J2704; J3010; L8699

== ENCOUNTER → 2023-12-18 09:47 | Outpatient (BNV) | payer MEDICARE, SELFPAY | PROVIDERS: Admitting Provider Neurological Surgery; PCP Internal Medicine; Visit Provider Neurological Surgery | DX: M48.062 Spinal stenosis, lumbar region with neurogenic claudication (principal); M54.40 Lumbago with sciatica, unspecified side | CPT/HCPCS: 20930; 22558; 22612; 22840; 22853; 63056; 99499 ==

== ENCOUNTER 2024-01-09 13:14 | Outpatient (AMB) | payer MEDICARE, SELFPAY ==
--- NOTE | 2024-01-09 13:25 | A.SPINEOV_ITS ---
Intake Visit Reasons: 1st post op Intake Note: Ms. Stephens is here today for her 1st post-op appointment. Internal Grinder Set Up Operator Required: No Allergies lisinopril Adverse Reaction (Intermediate, Verified 01/09/24 13:25) Cough Assessment & Plan Assessment & Plan (1) Lumbar stenosis with neurogenic claudication: Code(s): M48.062 - Spinal stenosis, lumbar region with neurogenic claudication Category: Medical Plan Mrs Stephens is here in follow-up, she is about 3 weeks out from her L4-5 trans Kambin interbody fusion. Unfortunately, she has not seen any significant improvement in her preoperative leg pain. She is still getting pain into her thighs and down to her legs. She is also developed a tremor which she thinks may be related to the narcotics, but she is weaned off them the last few days and feels as though might be better. She has been just taking Tylenol for now. She has had some dizziness from time to time as well. On my exam she looks comfortable, she is slightly slow with standing, her wounds have all healed nicely, I examined her upper and lower extremities and she has good strength with normal reflexes, no La's sign. I reassured her that I suspect things will just improve with time but that if she still continues to have tremors hands over the next few weeks that she should follow up with her PCP just in light of her medical conditions to make sure that there is not some other issue going on. She also stopped her gabapentin so there may be some issues with that as well. I would like to see her back in 6 weeks with a set of x-rays. We discussed activity guidelines, restrictions expectations after lumbar fusion surgery. Rc Bill MD, PhD [facility] Orders: Orders XR lumbar spine 4V min Today M48.062 - Spinal stenosis, lumbar region with neurogenic claudication Coding Level of Care Code Global (74581) Diagnoses Lumbar stenosis with neurogenic claudication M48.062
== END 2024-01-09 13:46 | disposition home or self-care (01) ==
PROVIDERS: PCP Internal Medicine; Visit Provider Physician Assistant
DX: M48.062 Spinal stenosis, lumbar region with neurogenic claudication (principal)
CPT/HCPCS: 99024

== ENCOUNTER 2024-01-09 13:14 | Outpatient (REF) | payer MEDICARE, SELFPAY | END 2024-01-09 13:15 | disposition home or self-care (01) | LOC: HO.HOSX 13:14 | PROVIDERS: PCP Internal Medicine; Visit Provider Physician Assistant | DX: M48.062 Spinal stenosis, lumbar region with neurogenic claudication (principal) | CPT/HCPCS: 99212 ==

== ENCOUNTER 2024-02-19 13:18 | Outpatient (REF) | payer MEDICARE, SELFPAY ==
--- NOTE | ~2024-02-19 | XR_ITS ---
EXAMINATION: XR LUMBOSACRAL SPINE WITH FLEXION AND EXTENSION VIEWS CLINICAL INFORMATION: Spinal stenosis, lumbar region with neurogenic claudication COMPARISON: Lumbar spine 09/22/2023 TECHNIQUE: Standing AP, lateral, lateral flexion and extension views of the lumbar spine FINDINGS: There are 5 nonrib-bearing lumbar-type vertebral bodies. The height of vertebral bodies is well-maintained. There is posterior fusion with transpedicular screws and adjoining rods as well as interbody disc spacer at L4-L5. The hardware appears intact. There is mild retrolisthesis of L4 with respect to L5. The patient demonstrates marked limitation of flexion. There is no change in alignment with flexion. There is decrease retrolisthesis of L4 with L5 on extension. There is disc space narrowing at L2-L3. There is multilevel degenerative facet joint disease. XR/XR lumbar spine 4V min IMPRESSION: 1. Status post posterior fusion at L4-L5. No evidence of hardware complication. 2. Mild retrolisthesis of L4 with respect to L5. 3. Decreased retrolisthesis of L4 with L5 on extension.
== END 2024-02-19 13:19 | disposition home or self-care (01) ==
LOC: HO.HOSX 13:18
PROVIDERS: PCP Internal Medicine; Visit Provider Physician Assistant
DX: M48.062 Spinal stenosis, lumbar region with neurogenic claudication (principal); Z98.1 Arthrodesis status
CPT/HCPCS: 72110; 99212

== ENCOUNTER 2024-02-19 13:18 | Outpatient (AMB) | payer MEDICARE, SELFPAY ==
--- NOTE | 2024-02-19 13:33 | HO.SPINEOV ---
Intake Visit Reasons: 2nd post op with xrays Intake Note: Ms. Stephens is here today for 2nd post op Preparation Supervisor Canning Required: No Allergies lisinopril Adverse Reaction (Intermediate, Verified 01/09/24 13:25) Cough Assessment & Plan Assessment & Plan (1) Lumbar stenosis with neurogenic claudication: Code(s): M48.062 - Spinal stenosis, lumbar region with neurogenic claudication Category: Medical Plan Mrs Stephens is about 2 months out from her L4-5 trans can lumbar interbody fusion. Unfortunately, she has not had any improvement in the pain going down into her hips and thighs with standing and walking. This was 1 of the main symptoms that she had before surgery. In terms of back pain, she does have some left-sided discomfort but it has really the leg pains that are giving her an issue. I reviewed her x-rays today and examined her. Her strength is good in terms of the lower extremity motor function. She has slow getting up to move around. Her wounds have all healed nicely. Her x-rays show that she has good positioning of the hardware in the upright and flexion-extension views. I am wondering if she might not have some residual stenosis, so I am going to send her for an MRI of the lumbar spine and we can see her back once it is completed. Rc Bill MD, PhD [facility] Orders: Orders MR lumbar spine wo con Today M48.062 - Spinal stenosis, lumbar region with neurogenic claudication Coding Level of Care Code Global (20319) Diagnoses Lumbar stenosis with neurogenic claudication M48.062
== END 2024-02-19 14:30 | disposition home or self-care (01) ==
PROVIDERS: PCP Internal Medicine; Visit Provider Physician Assistant
DX: M48.062 Spinal stenosis, lumbar region with neurogenic claudication (principal)
CPT/HCPCS: 99024

== ENCOUNTER 2024-02-28 12:15 | Outpatient (AMB) | payer OTHER, SELFPAY ==
[2024-02-28 12:14] VITALS: BP 94/76; PULSE 76; O2SAT 99; BMI 25.3
--- NOTE | 2024-02-28 12:14 | HO.NEPHOV ---
Vital Signs 02/28/24 12:14 Height 5 ft 3 in Weight 143 lb BMI 25.3 BP 94/76 Blood Pressure Location Lt brachial Position Sitting Pulse 76 Pulse Source Pulse Oximeter Pulse Oximetry (%) 99 Oxygen Delivery Method Room Air Intake Visit Reasons: HTN / 6 MO FU/ Confirmed [employer] Cutter Required: No Accompanied by: Spouse Allergies lisinopril Adverse Reaction (Intermediate, Verified 02/28/24 12:17) Cough HPI Comments Details: Pleasant middle-aged woman with the resistant hypertension as essentially normal renal function here for follow-up. Today she has no specific renal issues. She has chronic low back pain due to L4-L5 disease. She has had steroid injections with minimal improvement 02/28/24 Underwent back surgery December 18, 2023 Still with pain NO edema PFSH Medical History Thrush Bronchitis Arthritis GERD (gastroesophageal reflux disease) Psoas mass Elevated cholesterol Chronic renal insufficiency Back pain HTN (hypertension) Surgical History (Updated 02/28/24 @ 12:17 by MIKE Vazquez) History of back surgery (~12/2023) H/O colonoscopy Hx of excision of mass Hx of hemorrhoidectomy History of surgical removal of keloid Hx of tonsillectomy H/O: hysterectomy H/O section Family History Mother Mouth cancer Father Throat cancer Lung cancer Social History Household Members: Family Housing: House Are you a primary healthcare advisory services manager to a significant other at home: No Do you presently have visiting nurse or other home services: No Alcohol intake: never Patient Tobacco Use Status: Former Tobacco user Tobacco use type: Cigarette service: No Physical Exam Vital Signs: Last Vital Signs Pulse 76 02/28/24 12:14 BP 94/76 02/28/24 12:14 Pulse Ox 99 02/28/24 12:14 Oxygen Delivery Method Room Air 02/28/24 12:14 BMI result Body Mass Index 25.3 Const General: comfortable; No acute distress Orientation/consciousness: patient oriented x3 Eyes General: appearance normal, both eyes and all related structures Visual Ramirez: normal visual ramirez by confrontation Neck Neck: Yes supple and Yes no JVD Resp Effort & Inspection: normal respiratory effort and respiratory effort not decreased Auscultation: rhonchi Cardio Palpation: no palpable S3 and no palpable S4 Heart sounds: no rubs GI Inspection: Yes normal to inspection Palpation (GI): Soft to palpation Percussion: Yes normal to percussion Auscultation: normal bowel sounds General: Yes no CVA tenderness Back/Spine/Pelvis Back: no CVA tenderness Skin General skin exam: no petechiae and no purpura Neuro General: patient oriented x3 and no focal motor deficits Extrem General: No clubbing and No edema Results Reviewed Nephrology Results: Hgb 13.7 g/dl (12.0-16.0) 12/06/23 WBC 7.9 X10*3/uL (4.8-10.8) 12/06/23 Plt Count 296 X10*3/uL (160-400) 12/06/23 Sodium 138 mmol/L (135-145) 12/06/23 Potassium 4.1 mmol/L (3.3-5.1) 12/06/23 Chloride 100 mmol/L (96-108) 12/06/23 Carbon Dioxide 31 mmol/L (22-29) H 12/06/23 BUN 24 mg/dL (9-16) H 12/06/23 Creatinine 1.20 mg/dL (0.5-1.4) 12/06/23 Calcium 10.0 mg/dL (8.4-10.2) 12/06/23 Assessment & Plan Assessment & Plan (1) HTN (hypertension): Code(s): I10 - Essential (primary) hypertension Category: Medical Plan Middle-aged woman with resistant hypertension and essentially normal renal function. BP is low DC HCTZ Repeat renal panel Self follow her closely along with the team Orders: Orders Basic Metabolic Panel Today I10 - Essential (primary) hypertension Coding Level of Care Code Est Pt Level 4 (30668) Diagnoses HTN (hypertension) I10
== END 2024-02-28 12:29 | disposition home or self-care (01) ==
PROVIDERS: PCP Internal Medicine; Visit Provider Internal Medicine Hypertension Specialist
DX: I10 Essential (primary) hypertension (principal)
CPT/HCPCS: 99214

== ENCOUNTER → 2024-02-28 12:15 | Outpatient (BNVA) | payer OTHER, SELFPAY | PROVIDERS: Visit Provider Internal Medicine Hypertension Specialist ==

== ENCOUNTER 2024-02-28 12:46 | Outpatient (REF) | payer OTHER, SELFPAY ==
[2024-02-28 19:09] LABS: Anion Gap 11 (12-20); Blood Urea Nitrogen 16 mg/dL (9-16); Calcium 9.6 mg/dL (8.4-10.2); Carbon Dioxide 30 mmol/L (22-29); Chloride 101 mmol/L (96-108); Estimated Glomerular Filt Rate 43; Glucose Random 104 mg/dL (60-115); Potassium 3.6 mmol/L (3.3-5.1); Sodium 138 mmol/L (135-145)
== END 2024-02-28 12:47 | disposition home or self-care (01) ==
LOC: HO.HKASLDS 12:46
PROVIDERS: Visit Provider Internal Medicine Hypertension Specialist
DX: I10 Essential (primary) hypertension (principal)
CPT/HCPCS: 36415; 80048

== ENCOUNTER 2024-04-03 10:09 | Outpatient (REF) | payer OTHER, SELFPAY ==
--- NOTE | ~2024-04-03 | MR_ITS ---
EXAMINATION: MR LUMBAR SPINE WITHOUT CONTRAST CLINICAL INFORMATION: Neurogenic claudication COMPARISON: None TECHNIQUE: MRI of the lumbar spine was obtained using routine sequences without contrast. 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 Straightening of the normal lumbar lordosis. Trace anterolisthesis at L2-L3. Vertebral body heights are maintained. There is no suspicious osseous lesion. Multilevel disc desiccation with mild L2-L3 disc height loss. Postsurgical changes status post left-sided transforaminal lumbar interbody fusion at L4-L5. Nondiagnostic assessment of the hardware, would be better assessed on CT. 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 Level by level detail as follows: L1-L2: No spinal canal or neural foraminal stenosis. L2-L3: Posterior disc uncovering/pseudodisc bulge and mild facet arthrosis with ligamentum flavum thickening. Moderate to severe spinal canal stenosis and mild bilateral neural foraminal narrowing. L3-L4: Annular disc bulge with mild bilateral facet arthrosis and ligamentum flavum thickening. Trace right facet joint effusion. Moderate to severe spinal canal stenosis. Mild to moderate right and mild left neural foraminal narrowing with contact along the exiting L3 nerve roots. L4-L5: Postsurgical changes as above. Annular disc bulge with left foraminal disc osteophyte protrusion. The interbody disc cage appears to encroach upon the left neural foramen without definite intraforaminal extension, though would be better assessed on CT. Bilateral facet arthrosis. No spinal canal stenosis. Apparent moderate left neural foraminal stenosis with mass effect along the exiting left L4 nerve root. Patent right neural foramen.. L5-S1: Annular disc bulge and mild facet arthrosis. No spinal canal stenosis. Apparent mild bilateral neural foraminal narrowing, noting susceptibility artifact limits assessment of the right neural foramen. The conus medullaris terminates at the level of L2. The distal spinal cord is normal in appearance. No epidural fluid collection, hematoma, or mass. No significant abnormalities of the paraspinal musculature. Simple appearing bilateral renal cysts not requiring further imaging follow-up. The abdominal aorta is of normal contour and caliber. MR/MR lumbar spine wo con IMPRESSION: 1. 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 Findings to be called to the ordering clinician by a [facility] Physician Massotherapist. 2. Postsurgical changes status post left-sided transforaminal lumbar interbody fusion at L4-L5. Left foraminal disc osteophyte protrusion at this level contributes to apparent moderate left neural foraminal stenosis with mass effect along the exiting left L4 nerve root. The interbody disc cage appears to encroach upon the left neural foramen without definite intraforaminal extension, though this would be better assessed on CT. 3. 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
== END 2024-04-03 10:10 | disposition home or self-care (01) ==
LOC: HO.MRI 10:09
PROVIDERS: PCP Internal Medicine; Visit Provider Physician Assistant
DX: M48.062 Spinal stenosis, lumbar region with neurogenic claudication (principal)
CPT/HCPCS: 72148

== ENCOUNTER 2024-05-08 11:26 | Outpatient (AMB) | payer OTHER, SELFPAY ==
[2024-05-08 11:26] VITALS: BP 138/74; PULSE 125; O2SAT 98; BMI 26.0
--- NOTE | 2024-05-08 11:26 | HO.NEPHOV ---
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 Required: No Accompanied by: Spouse Allergies lisinopril Adverse Reaction (Intermediate, Verified 05/08/24 11:29) Cough Medication List - Last Reconciled 05/08/24 by Espinoza Murrieta MD acetaminophen (Acetaminophen Extra Strength) 1,000 mg (2 x 500 mg) PO TID PRN albuterol sulfate 90 mcg/actuation 2 puffs inhalation Q4H PRN aspirin (Adult Aspirin Regimen) 81 mg PO QPM atorvastatin 20 mg PO BEDTIME clonidine HCl 0.2 mg PO BEDTIME cyclobenzaprine 10 mg PO TID cyclobenzaprine 5 mg PO BEDTIME PRN gabapentin 300 mg PO TID hydrochlorothiazide 25 mg PO DAILY hydroxyzine HCl 25 mg PO TID PRN lorazepam 0.5 mg PO DAILY PRN losartan 100 mg PO QPM magnesium oxide 400 mg PO QPM metoprolol succinate ER 100 mg PO QPM omeprazole 20 mg PO QPM trazodone 100 mg PO BEDTIME HPI Comments Details: Pleasant middle-aged woman with the resistant hypertension as essentially normal renal function here for follow-up. Today she has no specific renal issues. She has chronic low back pain due to L4-L5 disease. She has had steroid injections with minimal improvement 02/28/24 Underwent back surgery December 18, 2023 Still with pain NO edema 05/08/24 Feels better Back on HCTZ PFSH Medical History Thrush Bronchitis Arthritis GERD (gastroesophageal reflux disease) Psoas mass Elevated cholesterol Chronic renal insufficiency Back pain HTN (hypertension) Surgical History History of back surgery (~12/2023) H/O colonoscopy Hx of excision of mass Hx of hemorrhoidectomy History of surgical removal of keloid Hx of tonsillectomy H/O: hysterectomy H/O section Family History Mother Mouth cancer Father Throat cancer Lung cancer Social History Household Members: Family Housing: House Are you a primary home care music therapist to a significant other at home: No Do you presently have visiting nurse or other home services: No Alcohol intake: never Patient Tobacco Use Status: Former Tobacco user Tobacco use type: Cigarette service: No Physical Exam Vital Signs: Last Vital Signs Pulse 125 H 05/08/24 11:26 BP 138/74 05/08/24 11:26 Pulse Ox 98 05/08/24 11:26 Oxygen Delivery Method Room Air 05/08/24 11:26 BMI result Body Mass Index 26.0 Const General: comfortable; No acute distress Orientation/consciousness: patient oriented x3 Eyes General: appearance normal, both eyes and all related structures Visual Morin: normal visual morin by confrontation Neck Neck: Yes supple and Yes no JVD Resp Effort & Inspection: normal respiratory effort and respiratory effort not decreased Auscultation: rhonchi Cardio Palpation: no palpable S3 and no palpable S4 Heart sounds: no rubs GI Inspection: Yes normal to inspection Palpation (GI): Soft to palpation Percussion: Yes normal to percussion Auscultation: normal bowel sounds General: Yes no CVA tenderness Back/Spine/Pelvis Back: no CVA tenderness Skin General skin exam: no petechiae and no purpura Neuro General: patient oriented x3 and no focal motor deficits Extrem General: No clubbing and No edema Results Reviewed Results Reviewed: cr 1.23 in February 2024 Nephrology Results: Hgb 13.7 g/dl (12.0-16.0) 12/06/23 WBC 7.9 X10*3/uL (4.8-10.8) 12/06/23 Plt Count 296 X10*3/uL (160-400) 12/06/23 Sodium 138 mmol/L (135-145) 02/28/24 Potassium 3.6 mmol/L (3.3-5.1) 02/28/24 Chloride 101 mmol/L (96-108) 02/28/24 Carbon Dioxide 30 mmol/L (22-29) H 02/28/24 BUN 16 mg/dL (9-16) 02/28/24 Creatinine 1.24 mg/dL (0.5-1.4) 02/28/24 Calcium 9.6 mg/dL (8.4-10.2) 02/28/24 Assessment & Plan Assessment & Plan (1) HTN (hypertension): Code(s): I10 - Essential (primary) hypertension Category: Medical Plan Middle-aged woman with resistant hypertension and essentially normal renal function. BP is acceptable No changes CKD 3 in a setting of HTN Creatinine stable at 1.23 Avoid nephrotoxins/NSAIDS Low salt diet Orders: Orders Basic Metabolic Panel 6 Months I10 - Essential (primary) hypertension Coding Level of Care Code Est Pt Level 3 (16670) Diagnoses HTN (hypertension) I10
== END 2024-05-08 11:40 | disposition home or self-care (01) ==
PROVIDERS: PCP Internal Medicine; Visit Provider Internal Medicine Hypertension Specialist
DX: I10 Essential (primary) hypertension (principal)
CPT/HCPCS: 99213

== ENCOUNTER → 2024-05-08 11:26 | Outpatient (BNVA) | payer OTHER, SELFPAY | PROVIDERS: PCP Internal Medicine; Visit Provider Internal Medicine Hypertension Specialist ==

== ENCOUNTER 2024-10-30 14:30 | Outpatient (REF) | payer OTHER, SELFPAY ==
--- OUTSIDE RECORDS SUMMARY | 2024-10-30 15:48 | XMS_ITS | Clinical Summary ---
Author Organization [facility] Address [address] [place] [address] Phone Care Team Providers Care Managing Editor Name Role Phone Laury Cartagena MD Primary Care Provider [phone] Allergies Active Allergy Reactions Criticality Noted Date Comments Jose Inhibitors Other (see comments) 03/02/2021 Medications aspirin (ST OTILIO) 81 MG EC tablet Take 1 tablet by mouth 1 (one) time each day Active cyclobenzaprine (FLEXERIL) 10 MG tablet Take 1 tablet by mouth 1 (one) time each day Active LORazepam (ATIVAN) 0.5 MG tablet Take 1 tablet by mouth 3 (three) times a day Active losartan (COZAAR) 100 MG tablet Take 1 tablet by mouth 1 (one) time each day 06/08/2017 Active metoprolol succinate XL (TOPROL-XL) 100 MG 24 hr tablet Take 1 tablet by mouth 2 (two) times a day Active simvastatin (ZOCOR) 10 MG tablet Take 1 tablet by mouth 1 (one) time each day Active gabapentin (NEURONTIN) 600 MG tablet Take 600 mg by mouth 3 times a day 12/09/2020 Active omeprazole (PriLOSEC) [address] capsule Take 20 mg by mouth 1 (one) time each day 02/23/2021 Active traZODone (DESYREL) 100 MG tablet Take 100 mg by mouth at bed time 12/19/2020 Active amLODIPine (NORVASC) 10 MG tablet Take 1 tablet (10 mg total) by mouth 1 (one) time each day 30 tablet 11 03/03/2021 Active magnesium oxide (MAG-OX) 400 (241.3 Mg) MG tablet Take 400 mg by mouth 1 (one) time each day 06/11/2021 Active tiZANidine (ZANAFLEX) 2 MG tablet Take 2 mg by mouth every 6 (six) hours if needed for muscle spasms Active cloNIDine (CATAPRES) 0.1 MG tablet Take 0.1 mg by mouth in the morning and 0.1 mg before bedtime. 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 Insomnia 06/04/2018 06/07/2023 Hyperlipidemia 03/08/2018 06/07/2023 Hypertension 03/08/2018 06/07/2023 Gastroesophageal reflux disease 09/07/2017 06/07/2023 Vitamin D deficiency 05/25/2015 06/07/2023 Immunizations Name Administration Dates Next Due Pneumococcal Polysaccharide 01/17/2014 Family History Medical History Relation Comments Hypertension Father Cancer Mother Dementia Sibling 2 sisters Relation Status Comments Father Unknown Mother Unknown Sibling Social History Tobacco Use Types Packs/Day Years Used Date Smoking Tobacco: Former Cigarettes Q uit: 09/18/1980 Smokeless Tobacco: Never Tobacco Cessation:Counseling Given: No Alcohol Use Standard Drinks/Week Comments No 0 (1 standard drink = 0.6 oz pur e alcohol) Comments Unknown Sex and Gender Information Value Date Recorded Sex Assigned at Not on file Legal Sex Female 5:06 PM EST Gender Identity Not on file Sexual Orientation Not on file Last Filed Vital Signs Vital Sign Reading Time Taken Comments Blood Pressure 110/70 06/07/2023 1:01 PM EDT Pulse 77 06/07/2023 1:01 PM EDT Temperature - - Respiratory Rate - - Oxygen Saturation 94% 06/07/2023 1:01 PM EDT Inhaled Oxygen Concentration - - Weight 66 kg (145 lb 9.6 oz) 06/07/2023 1:01 PM EDT Height 160 cm (5' 3 ) 06/07/2023 1:01 PM EDT Body Mass Index 25.79 06/07/2023 1:01 PM EDT Plan of Treatment Health Maintenance Due Date Last Done Comments Breast Cancer Screening 1955 Colorectal Cancer Screening: Annual FOBT 2002 Colorectal Cancer Screening: Colonoscopy 2002 Colorectal Cancer Screening: Sigmoidoscopy 2002 Pneumococcal Vaccine: 65+ Years (3 of 3 - PPSV23 or PCV20) 01/17/2019 03/08/2018, 01/17/2014 Influenza Vaccine (#1) 2024 Hepatitis B Vaccine Aged Out No longe r eligible based on patient's age to complete this topic Insurance [employer] Care Teams Managing Editor Relationship Specialty Start Date End Date Laury Cartagena MD [address] [place] [phone] PCP - General 09/28/20
--- OUTSIDE RECORDS SUMMARY | 2024-10-30 15:48 | XMS_ITS | Clinical Summary ---
Author Organization [facility] Address [address] [place] [address] Phone Care Team Providers Care Corporate Relations Director Name Role Phone Laury Cartagena MD Primary Care Provider [phone] Allergies Active Allergy Reactions Criticality Noted Date Comments Lisinopril 04/09/2013 Medications amLODIPine (NORVASC) 5 mg tablet Take 1 Tab by mouth daily. 08/14/20 20 Active atorvastatin (LIPITOR) 20 mg tablet Take 1 Tablet by mouth daily for 360 days. 02/21/20 24 025 Active blood pressure test kit-large kit 1 Device by Does not apply route daily. 02/09/20 19 Active calcium carbonate/gabe min D3 (CALCIUM 500 + D ORAL) Take 1 Tablet by mouth 2 times daily. 01/15/20 24 Active chlorhexidine (PERIDEX) 0.12 % solution 10/06/19 21 Active cloNIDine (CATAPRES-TTS- 2) 0.2 mg/[address] onto the skin. 09/04/20 18 Active hydroCHLOROthi azide (HYDRODIURIL) 25 mg tablet Take 1 Tablet by mouth daily. 02/21/20 24 Active lidocaine (Lidocaine Viscous) 2 % solution SWISH AND SPIT 10 ML EVERY 4 HOURS NEEDED FOR PAIN 07/16/20 21 Active metoprolol succinate (TOPROL-XL) 100 mg 24 hr tablet Take 1 tablet by mouth twice daily 02/14/20 24 Active diphenhydrAMIN E 12.5 mg/5 mL elixir 50 mg, aluminum-magne sium hydroxide-harvey thicone 400-400-40 mg/5 mL suspension 20 mL, lidocaine 2 % solution 20 mL MIX EQUAL PARTS:MAALOX SUSP/LIDOCAIN E VISCOUS 2 % MT SOLN/BENADRYL 12.5MG/5ML: Swish and spit 10 mL every 4 hours as needed for Pain. Please mix the following in equal parts: MAALOX REGULAR STRENGTH 225-200-25 MG/5ML OR SUSP- 30cc LIDOCAINE VISCOUS 2 % MT SOLN - 30cc BENADRYL 12.5 MG/5ML OR ELIX - 30cc 01/28/20 21 Active polyethylene glycol (MIRALAX) 17 gram packet Take 1 Packet by mouth daily. 01/15/20 24 Active psyllium (METAMUCIL) 0.52 gram capsule Take 1 Capsule by mouth daily for 360 days. 01/15/20 24 025 Active senna-docusate (PERICOLACE) 8.6-50 mg per tablet Take 1 Tablet by mouth daily. 02/21/20 24 Active tiZANidine (ZANAFLEX) 4 mg tablet Take 2 Tablets by mouth every 8 hours as needed for Muscle spasms. 11/07/19 24 Active triamcinolone acetonide (KENALOG-40) 40 mg/mL injection Inject 1 mL into the articular space once for 1 dose. 10/22/19 21 Active magnesium oxide (MAG-OX) 400 mg (241.3 elemental magnesium) tablet Take 1 tablet by mouth twice daily 180 tablet 07/31/20 24 Active gabapentin (NEURONTIN) 600 mg tablet TAKE 1 TABLET BY MOUTH THREE TIMES DAILY 90 tablet 08/06/20 24 Active traZODone (DESYREL) 100 mg tablet TAKE 1 TABLET BY MOUTH AT BEDTIME 90 tablet 08/09/20 24 Active losartan (COZAAR) 100 mg tablet Take 1 tablet (100 mg total) by mouth 1 (one) time each day. 90 tablet 3 08/15/20 24 Active omeprazole (PriLOSEC) [address] capsule Take 1 capsule (20 mg total) by mouth 1 (one) time each day. 90 capsule 2 08/15/20 24 Active cyclobenzaprin e (FLEXERIL) 10 mg tablet Take 1 tablet (10 mg total) by mouth 3 (three) times a day if needed for muscle spasms. 30 tablet 1 08/28/20 24 Active estradioL (ESTRACE) 2 mg tablet Take 1 tablet by mouth once daily 30 tablet 2 10/08/19 25 Active cloNIDine (CATAPRES) 0.1 mg tablet Take 2 tablets by mouth once daily 180 tablet 10/17/19 25 Active LORazepam (ATIVAN) 0.5 mg tablet TAKE 1 TABLET BY MOUTH AT BEDTIME NEEDED FOR ANXIETY 28 tablet 10/21/19 25 Active LORazepam (ATIVAN) 0.5 mg tablet TAKE 1 TABLET BY MOUTH AT BEDTIME NEEDED FOR ANXIETY 06/25/20 24 025 Discontinued cloNIDine (CATAPRES) 0.1 mg tablet Take 2 tablets by mouth once daily 180 tablet 07/23/20 24 025 Discontinued estradioL (ESTRACE) 2 mg tablet Take 1 tablet by mouth once daily 30 tablet 09/13/20 24 025 Discontinued Active Problems Problem Noted Date Diagnosed Date CKD (chronic kidney disease) stage 3, GFR 30-59 ml/min 08/28/2018 Insomnia 06/04/2018 Hyperlipidemia 03/08/2018 Hypertension 03/08/2018 GERD (gastroesophageal reflux disease) 7 Vitamin D deficiency 05/25/2015 Encounters Date Type Department Care Team Description 10/30/2024 10:30 AM EST Consult Internal Medicine - [address] [phone] Laury Cartagena MD Pre-op examination (Primary Dx); Stage 3b chronic kidney disease (CMS/HCC); Mixed hyperlipidemia; Primary hypertension 10/25/2024 Telephone Internal Medicine [address] [phone] Laury Cartagena MD 10/24/2024 Telephone Internal Medicine [address] [phone] Laury Cartagena MD Pre-op Visit (11/13/24 Dental surgery [facility]) from Last 3 Months Immunizations Name Administration Dates Next Due Influenza trivalent, 0.5mL, preservative free (Fluarix; FluLaval; Fluzone) ages 6mo and older (Afluria) 3 years and older 09/07/2017 Pneumococcal conjugate 13 va lent (Prevnar 13, PCV13) 2mo and older 03/08/2018 Surgical History Surgery Date Site/Laterality Comments SECTION PROCEDURE: HISTORICAL HEMORRHOID SURGERY PROCEDURE: HISTORICAL HEMMORROIDECTOMY COLONOSCOPY PROCEDURE: HISTORICAL COLONOSCOPY HYSTERECTOMY PROCEDURE: HISTORICAL HYSTERECTOMY Medical History Medical History Date Comments GERD (gastroesophageal reflux disease) 7 DX:GERD (gastroesophageal reflux disease) Hyperlipidemia 03/08/2018 DX:Hyperlipidemi a Hypertension 03/08/2018 DX:Hypertension Insomnia 06/04/2018 DX:Insomnia Vitamin D deficiency 05/25/2015 DX:Vitamin D deficiency CKD (chronic kidney disease) stage 3, GFR 30-59 ml/min ([facility]) 08/28/2018 DX:CKD (chronic kidney dise ase) stage 3, GFR 30-59 ml/min ([facility]) Social History Tobacco Use Types Packs/Day Years Used Date Smoking Tobacco: Former Smokeless Tobacco: Never Tobacco Cessation:Counseling Given: Not Answered Alcohol Use Standard Drinks/Week Comments No 0 (1 standard drink = 0.6 oz pur e alcohol) Comments Unknown Sex and Gender Information Value Date Recorded Sex Assigned at Not on file Legal Sex Female 9:40 AM EST Gender Identity Not on file Sexual Orientation Not on file Obstetrics History Last Filed Vital Signs Vital Sign Reading Time Taken Comments Blood Pressure 110/86 10/30/2024 10:33 AM EST Pulse 70 10/30/2024 10:33 AM EST Temperature 36.2 ??C (97.1 ??F) 10/30/2024 10:[address] Respiratory Rate - - Oxygen Saturation 98% 10/30/2024 10:33 AM EST Inhaled Oxygen Concentration - - Weight 65.8 kg (145 lb) 10/30/2024 10:33 AM EST Height 160 cm (5' 3 ) 02/21/2024 11:18 AM EDT Body Mass Index 25.69 02/21/2024 11:18 AM EDT Plan of Treatment Upcoming Encounters Date Type Department Care Team (Late st Contact Info) Description 03/12/2025 11:30 AM EDT Office Visit Internal Medicine - [place] 175 [facility] [address] [place] [address] Laury Cartagena MD 175 [facility] [address] [place] [address] Health Maintenance Due Date Last Done Comments Breast Cancer Screening 06/13/2020 06/13/2018 Depression Screening 08/16/2022 Falls Risk Assessment 08/16/2022 Medicare Annual Wellness Visit 08/16/2022 Social Influencers of Health Screening 08/16/2022 Pneumococcal Vaccine: 50+ Years (3 of 3 - PCV20 or PCV21) 03/08/2023 03/08/2018, 01/17/2014 COVID-19 Vaccine ( season) 2024 06/27/2023, 08/18/2022, 05/07/2022, Additional history exists Hypertension/CHF/CAD Annual BMP Blood Test 01/14/2025 01/15/2024, 01/15/2024 Cholesterol Screening (Lipid Panel) 07/20/2027 07/20/2022 RSV Immunization Patients 60+ Years Old (1 - 1-dose 75+ series) 02/17/2028 Colorectal Cancer Screening: Colonoscopy 06/10/2030 06/10/2020 Osteoporosis Screening (Bone Density Screening) 06/17/2030 06/17/2020, 06/13/2018 DTaP,Tdap,and Td Vaccines (2 - Td or Tdap) 05/14/2034 05/14/2024 Hepatitis C Screening Completed 05/18/2020 Zoster Vaccines Completed 08/31/2021, 06/29/2021 Influenza Vaccine Completed 05/14/2024, , 06/15/2022, Additional history exists HIB Vaccines Aged Out No longer eligi ble based on patient's age to complete this topic HPV Vaccines Aged Out No longer eligi ble based on patient's age to complete this topic Hepatitis A Vaccines Aged Out No long er eligible based on patient's age to complete this topic Hepatitis B Vaccines Aged Out No long er eligible based on patient's age to complete this topic IPV Vaccines Aged Out No longer eligi ble based on patient's age to complete this topic MMR Vaccines Aged Out No longer eligi ble based on patient's age to complete this topic Meningococcal ACWY Vaccine Aged Out N o longer eligible based on patient's age to complete this topic Meningococcal B Vacine Aged Out No lo nger eligible based on patient's age to complete this topic RSV Immunization Patients Under 20 months Aged Out No longer eligible based on patient's age to complete this topic Varicella Vaccines Aged Out No longer eligible based on patient's age to complete this topic Procedures Procedure Name Priority Date/Time Associated Diagnosis Comments ECG INTERPRETATION AND REPORT ONLY Routine 10/30/2024 11:37 AM EST Stage 3b chronic kidney disease (CMS/HCC) Mixed hyperlipidemia Primary hypertension Pre-op examination ANNUAL BMP BLOOD TEST Routine 01/15/2024 LIPID PANEL Routine 07/20/2022 DXA BONE DENSITY STUDY 1+ SITS AXIAL SKEL Routine 06/17/2020 11:22 AM EDT Myalgia, unspecified site Other specified symptoms and signs involving the circulatory and respiratory systems Cough COLONOSCOPY Routine 06/10/2020 HEPATITIS C SCREENING Routine 05/18/2020 [facility] SCREENING DIGITAL Routine 06/13/2018 4:33 PM EDT Encounter for screening mammogram for malignant neoplasm of breast from Last 3 Months or Most Recently Relevant to Health Maintenance Results * ECG Interpretation and Report Only (10/30/2024 11:37 AM EST) Narrative Laury Cartagena MD - 10/30/2024 11:37 AM EST Normal sinus rhythm, no ST-T changes us Laury Cartagena MD ECG ORDERABLES Final Result * Annual BMP Blood Test (01/15/2024) Annual BMP Blood Test Abstracted [facility] Provider HEALTH MAINTENANCE Final Result * (ABNORMAL) Lipid panel (07/20/2022) LDL/HDL Ratio 4 0 - 4 Triglycerides 159(A) 0 - 150 mg/dL Cholesterol 224(A) 0 - 200 mg/dL HDL 52 >=40 mg/dL LDL Cholesterol 141(A) 0 - 100 mg/dL Blood Venous blood specimen / Unknown us Historical Provider LAB BLOOD ORDERABLES Randi sam Result * DXA BONE DENSITY STUDY 1+ SITS AXIAL SKEL (06/17/2020 11:22 AM EDT) Anatomical Region Laterality Modality Bone Densitometr y 05/18/2020 9:32 AM EDT Narrative 06/17/2020 1:31 PM EDT BONE DENSITY ? Lumbar Spine T-score is +1.4 ?? (SD relative to 20-29 y/o adult) Z-score is +3.3 ??(SD relative to age matched peers) This is normal by criteria defined by the WHO. Left Hip T-score is +0.8 Z-score is +2.1 This is normal by criteria defined by the WHO. Impression: Based on the World Health Organization criteria, Sudha Null should be classified as having normal bone density. The [facility] Department of Internal Medicine recommends using National Osteoporosis Foundation (NOF) guidelines in treatment decisions related to osteoporosis. NOF guidelines suggest considering treatment for postmenopausal women and men aged 50 or older presenting with the following: History of hip or vertebral fracture. T-score less than or equal to -2.5 (DXA) at the femoral neck, total hip, or spine, after appropriate evaluation to exclude secondary causes. Low bone mass (T-score between -1.0 and -2.5 at the femoral neck or spine) AND a 10-year probability of a hip fracture greater than or equal to 3% OR a 10-year probability of a major osteoporosis-related fracture greater than or equal to 20% based on the [place]-adapted WHO algorithm Please note that all treatment decisions require clinical judgment and consideration of individual patient factors, including patient preferences, co-morbidities, previous drug use, risk factors not captured in the FRAX model (e.g., frailty, falls, vitamin D deficiency, increased bone turnover, interval significant decline in bone density) and possible under- or over-estimation of fracture risk by FRAX. Procedure Note Nallely Campos MD - 09/06/2022 BONE DENSITY Lumbar Spine T-score is +1.4 (SD relative to 20-29 y/o adult) Z-score is +3.3 (SD relative to age matched peers) This is normal by criteria defined by the WHO. Left Hip T-score is +0.8 Z-score is +2.1 This is normal by criteria defined by the WHO. Impression: Based on the World Health Organization criteria, Sudha Null should beclassified as having normal bone density. The [facility] Department of Internal Medicine recommendsusing National Osteoporosis Foundation (NOF) guidelines in treatmentdecisions related to osteoporosis. NOF guidelines suggest consideringtreatment for postmenopausal women and men aged 50 or older presentingwith the following: History of hip or vertebral fracture. T-score less than or equal to -2.5 (DXA) at the femoral neck, total hip,or spine, after appropriate evaluation to exclude secondary causes. Low bone mass (T-score between -1.0 and -2.5 at the femoral neck or spine)AND a 10-year probability of a hip fracture greater than or equal to 3% ORa 10-year probability of a major osteoporosis-related fracture greaterthan or equal to 20% based on the [place]-adapted WHO algorithm Please note that all treatment decisions require clinical judgment andconsideration of individual patient factors, including patientpreferences, co-morbidities, previous drug use, risk factors not capturedin the FRAX model (e.g., frailty, falls, vitamin D deficiency, increasedbone turnover, interval significant decline in bone density) and possibleunder- or over-estimation of fracture risk by FRAX. Zahra Allen MD IM DXA PROCEDURES Final Resul t * Colonoscopy (06/10/2020) [facility] Colonoscopy Abstracted, No interpretation Anatomical Region Laterality Modality Other Historical Provider HEALTH MAINTENANCE Final Result * Hepatitis C Screening (05/18/2020) [facility] Hepatitis C Screening Abstracted Historical Provider HEALTH MAINTENANCE Final Result * [facility] SCREENING DIGITAL (06/13/2018 4:33 PM EDT) Anatomical Region Laterality Modality Mammography 06/13/2018 9:25 AM EDT Narrative 06/13/2018 4:33 PM EDT [facility] Diagnostic Imaging Department [address] [place] [id number] Patient: ??CHAKASUDHA Angelina ?/Age/Sex: 1955 - Unit#: ??[id number] ? Location/Status: ??SPDIMAM/REG CLI ? Mnemonic/Ordering Site: ??DIGSC/SPMAM Ordering Physician: ??RAUL GREEN MD [facility] Screening Digital - 06/13/18947 EXAM: [facility] Screening Digital EXAM DATE AND TIME: 06/13/2018 9:48 AM HISTORY: ??Screening. COMPARISON: ??08/24/16, 05/06/15, 11/30/10 TECHNIQUE: CC and MLO views of both breasts were obtained using full field digital mammography. Bilateral digital breast tomosynthesis was performed in the MLO projection. Computer aided detection with the Codasip 7.2-H was employed. TISSUE DENSITY: b. There are scattered areas of fibroglandular density. FINDINGS: No suspicious masses, grouped microcalcifications, or areas of architectural distortion are seen. A few benign calcifications are scattered bilaterally, unchanged. The skin and vascularity are unremarkable. IMPRESSION: Stable mammographic appearance of the breasts. ??No evidence of malignancy is seen. A negative mammogram in the presence of a clinically suspicious palpable abnormality does not preclude the possibility of malignancy or alter the indications for biopsy. BI-RADS: ??Category 2: Benign RECOMMENDATION(S): 1: Routine screening mammogram BILATERAL in 1 year. [id number], [address]77 3342F, 7025F Dictating Physician: ??JOSEFINA SANTANA MD Electronically Signed by: ??JOSEFINA SANTANA MD Dic Date/Time: ??06/13/18 1633 Sign date/Time: ??06/13/18 163 Procedure Note Josefina Santana MD - 09/06/2022 [facility] Diagnostic Imaging Department [address] [place] [address] Patient: SUDHA NULL /Age/Sex: 1955 - 63 - F Unit#: [id number] Location/[facility]: [facility] Mnemonic/Ordering Site: [facility] Ordering Physician: RAUL GREEN MD [facility] Screening Digital - 06/13/18947 EXAM: [facility] Screening Digital EXAM DATE AND TIME: 06/13/2018 9:48 AM HISTORY: Screening. COMPARISON: 08/24/16, 05/06/15, 11/30/10 TECHNIQUE: CC and MLO views of both breasts were obtained using fullfield digital mammography. Bilateral digital breast tomosynthesis was performedin the MLO projection. Computer aided detection with the iCAD SecondLook 7.2-Hwas employed. TISSUE DENSITY: b. There are scattered areas of fibroglandular density. FINDINGS: No suspicious masses, grouped microcalcifications, or areas ofarchitectural distortion are seen. A few benign calcifications are scatteredbilaterally, unchanged. The skin and vascularity are unremarkable. IMPRESSION: Stable mammographic appearance of the breasts. No evidence of malignancyis seen. A negative mammogram in the presence of a clinically suspicious palpable abnormality does not preclude the possibility of malignancy or alter the indications for biopsy. BI-RADS: Category 2: Benign RECOMMENDATION(S): 1: Routine screening mammogram BILATERAL in 1 year. [address]88, [address]335 3342F, 7025F Dictating Physician: JOSEFINA SANTANA MD Electronically Signed by: JOSEFINA SANTANA MD Dic Date/Time: 06/13/18 1633 Sign date/Time: 06/13/18 1633 Raul Green MD IMG BI PROCEDURES Final Result from Last 3 Months or Most Recently Relevant to Health Maintenance Insurance [employer] Care Teams Corporate Relations Director Relationship Specialty Start Date End Date Laury Cartagena MD [address] [phone] PCP - General Internal Medicine 07/19/18
--- OUTSIDE RECORDS SUMMARY | 2024-10-30 15:48 | XMS_ITS | Encounter Summary ---
Author Organization [facility] Address [address] [place] [address] Care Team Providers Care Visual And Stock Associate Name Role Phone Laury Cartagena MD Primary Care Provider [phone] Encounter Details Date Type Department Care Team (Late Contact Info) Description 10/25/2024 Telephone Internal Medicine [facility] 175 [facility] [address] [place] [phone] Laury Cartagena MD 175 [facility] [address] [place] [phone] Social History Tobacco Use Types Packs/Day Years Used Date Smoking Tobacco: Former Smokeless Tobacco: Never Alcohol Use Standard Drinks/Week Comments No 0 (1 standard drink = 0.6 oz pur e alcohol) Comments Unknown Sex and Gender Information Value Date Recorded Sex Assigned at Not on file Legal Sex Female 9:40 AM EST Gender Identity Not on file Sexual Orientation Not on file documented as of this encounter Progress Notes * Prabha Guerra - 10/25/2024 2:30 PM EST Pt is jim'd for Dental surgery to remove bottom teeth with [facility] on 11/13/24 on [facility] in [place], [place]. No EKG or labs are required for procedure. Paperwork was faxed on 10/23/24, was this received Please advise? Ty! documented in this encounter Plan of Treatment Upcoming Encounters Date Type Department Care Team (Late Contact Info) Description 03/12/2025 11:30 AM EDT Office Visit Internal Medicine - [place] 175 [facility] [address] [place] [phone] Laury Cartagena MD [address] [phone] documented as of this encounter Visit Diagnoses Not on filedocumented in this encounter Care Teams Visual And Stock Associate Relationship Specialty Start Date End Date Laury Cartagena MD [address] [phone] PCP - General Internal Medicine 07/19/18 documented as of this encounter
--- OUTSIDE RECORDS SUMMARY | 2024-10-30 15:48 | XMS_ITS | Encounter Summary ---
Author Organization [facility] Address [address] [place] [address] Care Team Providers Care Charge Hand Name Role Phone Laury Cartagena MD Primary Care Provider [phone] Reason for Visit * Reason Comments Pre-op Exam Dental Encounter Details Date Type Department Care Team ([facility] st Contact Info) Description 10/30/2024 10:30 AM EST Consult Internal Medicine - [place] [address] [phone] Laury Cartagena MD 175 [facility] [address] [place] [phone] Pre-op examination (Primary Dx); Stage 3b chronic kidney disease (CMS/HCC); Mixed hyperlipidemia; Primary hypertension Social History Tobacco Use Types Packs/Day Years [...] on file documented as of this encounter Last Filed Vital Signs Vital Sign Reading Time Taken Comments Blood Pressure 110/86 10/30/2024 10:33 AM EST Pulse 70 10/30/2024 10:33 AM EST Temperature 36.2 ??C (97.1 ??F) 10/30/2024 10:[address] Respiratory Rate - - Oxygen Saturation 98% 10/30/2024 10:33 AM EST Inhaled Oxygen Concentration - - Weight 65.8 kg (145 lb) 10/30/2024 10:33 AM EST Height - - Body Mass Index 25.69 02/21/2024 11:18 AM EDT documented in this encounter Progress Notes * Laury Cartagena MD - 10/30/2024 10:30 AM EST CHIEF COMPLAINT: Pre-op Exam (Dental) IDENTIFIER: Sudha Stephens is a 69 y.o. old female. HPI:Hypertension hyperlipidemia insomnia chronic kidney disease anxiety. Patient is here for preop for dental extraction of the lower jaw. No chest pain shortness of breath palpitations dizziness Blood pressure under good control ROS: GENERAL: No malaise, significant weight loss or fever NECK: No lumps, goiter, pain or significant neck swelling RESPIRATORY: No cough, wheezing or shortness of breath CARDIOVASCULAR: No chest pain, leg swelling or palpitations GI: No abdominal discomfort, blood in stools or black stools PSYCH: No sleep disturbance, mood disorder or recent psychosocial stressors. PAST MEDICAL HISTORY: Patient Active Problem List Diagnosis Date Noted CKD (chronic kidney disease) stage 3, GFR 30-59 ml/min (CMS/[facility]) 08/28/2018 Insomnia 06/04/2018 Hyperlipidemia 03/08/2018 Hypertension 03/08/2018 GERD (gastroesophageal reflux disease) 09/07/2017 Vitamin D deficiency 05/25/2015 Past Surgical History: Procedure Laterality Date SECTION PROCEDURE: HISTORICAL COLONOSCOPY PROCEDURE: HISTORICAL COLONOSCOPY HEMORRHOID SURGERY PROCEDURE: HISTORICAL HEMMORROIDECTOMY HYSTERECTOMY PROCEDURE: HISTORICAL HYSTERECTOMY SOCIAL HISTORY: Social History Tobacco Use Smoking status: Former Smokeless tobacco: Never Substance Use Topics Alcohol use: No FAMILY HISTORY: No family history on file. No family status information on file. MEDICATIONS DISCONTINUED/REORDERED: There are no discontinued medications. ACTIVE MEDICATIONS: Outpatient Medications Marked as Taking for the 10/30/24 encounter (Consult) with Laury Cartagena MD Medication Sig Dispense Refill amLODIPine (NORVASC) 5 mg tablet Take 1 Tab by mouth daily. atorvastatin (LIPITOR) 20 mg tablet Take 1 Tablet by mouth daily for 360 days. blood pressure test kit-large kit 1 Device by Does not apply route daily. calcium carbonate/vitamin D3 (CALCIUM 500 + D ORAL) Take 1 Tablet by mouth 2 times daily. chlorhexidine (PERIDEX) 0.12 % solution cloNIDine (CATAPRES) 0.1 mg tablet Take 2 tablets by mouth once daily 180 tablet 0 cloNIDine (GJGLTROX-ZVI-7) 0.2 mg/[address] onto the skin. cyclobenzaprine (FLEXERIL) 10 mg tablet Take 1 tablet (10 mg total) by mouth 3 (three) times a day if needed for muscle spasms. 30 tablet 1 diphenhydrAMINE 12.5 mg/5 mL elixir 50 mg, aluminum-magnesium hydroxide- simethicone 400-400-40 mg/5mL suspension 20 mL, lidocaine 2 % solution 20 mL MIX EQUAL PARTS:MAALOX SUSP/LIDOCAINE VISCOUS 2 %MT SOLN/BENADRYL 12.5MG/5ML: Swish and spit 10 mL every 4 hours as needed for Pain. Please mix the following in equal parts: MAALOX REGULAR STRENGTH 225-200-25 MG/5ML OR SUSP- 30cc LIDOCAINE VISCOUS 2 % MT SOLN - 30cc BENADRYL 12.5 MG/5ML OR ELIX - 30cc estradioL (ESTRACE) 2 mg tablet Take 1 tablet by mouth once daily 30 tablet 2 gabapentin (NEURONTIN) 600 mg tablet TAKE 1 TABLET BY MOUTH THREE TIMES DAILY 90 tablet 0 hydroCHLOROthiazide (HYDRODIURIL) 25 mg tablet Take 1 Tablet by mouth daily. lidocaine (Lidocaine Viscous) 2 % solution SWISH AND SPIT 10 ML EVERY 4 HOURS NEEDED FOR PAIN LORazepam (ATIVAN) 0.5 mg tablet TAKE 1 TABLET BY MOUTH AT BEDTIME NEEDED FOR ANXIETY 28 tablet 0 losartan (COZAAR) 100 mg tablet Take 1 tablet (100 mg total) by mouth 1 (one) time each day. 90 tablet 3 magnesium oxide (MAG-OX) 400 mg (241.3 elemental magnesium) tablet Take 1 tablet by mouth twice daily 180 tablet 0 metoprolol succinate (TOPROL-XL) 100 mg 24 hr tablet Take 1 tablet by mouth twice daily omeprazole (PriLOSEC) [address] capsule Take 1 capsule (20 mg total) by mouth 1 (one) time each day.90 capsule 2 polyethylene glycol (MIRALAX) 17 gram packet Take 1 Packet by mouth daily. psyllium (METAMUCIL) 0.52 gram capsule Take 1 Capsule by mouth daily for 360 days. senna-docusate (PERICOLACE) 8.6-50 mg per tablet Take 1 Tablet by mouth daily. tiZANidine (ZANAFLEX) 4 mg tablet Take 2 Tablets by mouth every 8 hours as needed for Muscle spasms. traZODone (DESYREL) 100 mg tablet TAKE 1 TABLET BY MOUTH AT BEDTIME 90 tablet 0 triamcinolone acetonide (KENALOG-40) 40 mg/mL injection Inject 1 mL into the articular space once for 1 dose. ALLERGIES: Allergies Allergen Reactions Lisinopril PHYSICAL EXAM: Visit Vitals BP 110/86 (BP Location: Left arm, Patient Position: Sitting, BP Cuff Size: Large adult) Pulse 70 Temp 36.2 ??C (97.1 ??F) (Temporal) Wt 65.8 kg (145 lb) SpO2 98% BMI 25.69 kg/m?? Smoking Status Former BSA 1.69 m?? APPEARANCE: Alert and in no acute distress NECK: Neck supple, no adenopathy, thyroid symmetric and of normal size HEART: RRR with normal S1 and S2, no murmurs, no gallops, no JVD appreciated LUNG: clear to auscultation ABDOMEN: Bowel sounds normoactive, no bruits, soft, non-tender, without organomegaly or palpable masses SKIN: Skin color, texture, turgor normal. No rashes or lesions. LABS/IMAGING: Abstract on 07/04/2024 Component Date Value Ref Range Status Hepatitis C Screening 05/18/2020 Abstracted Final Annual BMP Blood Test 01/15/2024 Abstracted Final Colonoscopy 06/10/2020 Abstracted, No interpretation Final LDL/HDL Ratio 07/20/2022 4 0 - 4 Final Triglycerides 07/20/2022 159 (A) 0 - 150 mg/dL Final Cholesterol 07/20/2022 224 (A) 0 - 200 mg/dL Final HDL 07/20/2022 52 >=40 mg/dL Final LDL Cholesterol 07/20/2022 141 (A) 0 - 100 mg/dL Final Hemoglobin A1C 05/01/2019 5.8 <=6.5 % Final Medication and lab orders: Orders Placed This Encounter Procedures CBC and differential Comprehensive metabolic panel Magnesium ECG 12 lead Tracing Only ECG Interpretation and Report Only Other orders: None IMPRESSION: 1. Pre-op examination 2. Stage 3b chronic kidney disease (CMS/HCC) 3. Mixed hyperlipidemia 4. Primary hypertension PLAN: I can clear the patient for dental extraction with moderate risk EKG normal sinus rhythm no ST-T changes CBC CMP magnesium ordered Laury D Chaganti, MD on 10/30/2024 at 11:38 AM EST documented in this encounter Plan of Treatment Upcoming Encounters Date Type Department Care Team (Late st Contact Info) Description 03/12/2025 11:30 AM EDT Office Visit Internal Medicine - [place] [address] [facility] [address] [place] [address] Laury Cartagena MD [address] [facility] [address] [place] [phone] Pending Results Name Type Priority Associated Diagnoses Date /Time CBC and differential Lab Routine Stage 3b chronic kidney disease (CMS/HCC) Mixed hyperlipidemia Primary hypertension 10/30/2024 11:41 AM EST Comprehensive metabolic panel Lab Routine Stage 3b chronic kidney disease (CMS/HCC) Mixed hyperlipidemia Primary hypertension 10/30/2024 11:41 AM EST Magnesium Lab Routine Stage 3b chronic kidney disease (CMS/HCC) Mixed hyperlipidemia Primary hypertension 10/30/2024 11:41 AM EST Scheduled Orders Name Type Priority Associated Diagnoses Orde r Schedule CBC and differential Lab Routine Stage 3b chronic kidney disease (CMS/HCC) Mixed hyperlipidemia Primary hypertension 1 Occurrences starting 10/30/2024 until 10/30/2025 Comprehensive metabolic panel Lab Routine Stage 3b chronic kidney disease (CMS/HCC) Mixed hyperlipidemia Primary hypertension 1 Occurrences starting 10/30/2024 until 10/30/2025 Magnesium Lab Routine Stage 3b chronic kidney disease (CMS/HCC) Mixed hyperlipidemia Primary hypertension 1 Occurrences starting 10/30/2024 until 10/30/2025 ECG 12 lead Tracing Only ECG Routine Stage 3b chronic kidney disease (CMS/HCC) Primary hypertension Pre-op examination 1 Occurrences starting 10/30/2024 until 10/30/2025 documented as of this encounter Procedures Procedure Name Priority Date/Time Associated Diagnosis Comments ECG INTERPRETATION AND REPORT ONLY Routine 10/30/2024 11:37 AM EST Stage 3b chronic kidney disease (CMS/HCC) Mixed hyperlipidemia Primary hypertension Pre-op examination documented in this encounter Results * ECG Interpretation and Report Only (10/30/2024 11:37 AM EST) Narrative Laury Cartagena MD - 10/30/2024 11:37 AM EST Normal sinus rhythm, no ST-T changes Laury Cartagena MD ECG ORDERABLES Final Result documented in this encounter Visit Diagnoses Diagnosis Pre-op examination- Primary Stage 3b chronic kidney disease (CMS/HCC) Mixed hyperlipidemia Primary hypertension Unspecified essential hypertension documented in this encounter Care Teams Charge Hand Relationship Specialty Start Date End Date Laury Cartagena MD [address] [phone] PCP - General Internal Medicine 07/19/18 documented as of this encounter
--- OUTSIDE RECORDS SUMMARY | 2024-10-30 15:48 | XMS_ITS | Encounter Summary ---
Author Organization [facility] Address [address] [place] [address] Care Team Providers Care Skin Care Consultant Name Role Phone Laury Cartagena MD Primary Care Provider [phone] Reason for Visit * Reason Onset Date Comments Pre-op Visit 10/24/2024 11/13/24 Dental s urgery [facility] Encounter Details Date Type Department Care Team (Late st Contact Info) Description 10/24/2024 Telephone Internal Medicine - [place] [address] [facility] [address] [place] [address] Laury Cartagena MD [address] [facility] [address] [place] [phone] Pre-op Visit (11/13/24 Dental surgery [facility]) Social History Tobacco Use Types Packs/Day Years [...] Progress Notes * Prabha Guerra - 10/25/2024 2:22 PM EST Pt is jim'd for Dental surgery to remove bottom teeth with [facility] on 11/13/24 on [facility] in [place], [place]. No EKG or labs are required for procedure. Please call pt to schedule Pre-Op appt, Ty! [phone] or [phone] documented in this encounter Plan of Treatment Upcoming Encounters Date Type Department Care Team (Late st Contact Info) Description 03/12/2025 11:30 AM EDT Office Visit Internal Medicine - [place] 175 [facility] [address] [place] [phone] Laury Cartagena MD 175 [facility] 200 [place] [phone] documented as of this encounter Visit Diagnoses Not on filedocumented in this encounter Care Teams Skin Care Consultant Relationship Specialty Start Date End Date Laury Cartagena MD 175 [facility] 200 [place] [phone] PCP - General Internal Medicine 07/19/18 documented as of this encounter
[2024-10-30 18:08] LABS: Anion Gap 15 (12-20); Blood Urea Nitrogen 16 mg/dL (9-16); Calcium 9.9 mg/dL (8.4-10.2); Carbon Dioxide 24 mmol/L (22-29); Chloride 102 mmol/L (96-108); Estimated Glomerular Filt Rate 44; Glucose Random 104 mg/dL (60-115); Potassium 3.5 mmol/L (3.3-5.1); Sodium 137 mmol/L (135-145)
== END 2024-10-30 14:31 | disposition home or self-care (01) ==
LOC: HO.HKASLDS 14:30
PROVIDERS: Visit Provider Internal Medicine Hypertension Specialist
DX: I10 Essential (primary) hypertension (principal)
CPT/HCPCS: 36415; 80048

== ENCOUNTER 2024-11-06 10:42 | Outpatient (AMB) | payer OTHER, SELFPAY ==
[2024-11-06 10:44] VITALS: BP 102/70; PULSE 72; O2SAT 90; BMI 26.6
--- NOTE | 2024-11-06 10:44 | HO.NEPHOV_ITS ---
Vital Signs 11/06/24 10:44 Height 5 ft 3 in Weight 150 lb BMI 26.6 BP 102/70 Blood Pressure Location Lt brachial Position Sitting Pulse 72 Pulse Source Pulse Oximeter Pulse Oximetry (%) 90 L Oxygen Delivery Method Room Air Intake Visit Reasons: 6 mon follow up/ Conf Telegraph Installer Required: No Accompanied by: Client Allergies lisinopril Adverse Reaction (Intermediate, Verified 11/06/24 10:47) Cough Medication List - Last Reconciled 11/06/24 by Espinoza Murrieta MD acetaminophen (Acetaminophen Extra Strength) 1,000 mg (2 x 500 mg) PO TID PRN albuterol sulfate 90 mcg/actuation 2 puffs inhalation Q4H PRN aspirin (Adult Aspirin Regimen) 81 mg PO QPM atorvastatin 20 mg PO BEDTIME clonidine HCl 0.2 mg PO BEDTIME cyclobenzaprine 10 mg PO TID cyclobenzaprine 5 mg PO BEDTIME PRN estradiol 2 mg PO .weekly gabapentin 300 mg PO TID hydrochlorothiazide 25 mg PO DAILY hydroxyzine HCl 25 mg PO TID PRN lorazepam 0.5 mg PO DAILY PRN losartan 100 mg PO QPM magnesium oxide 400 mg PO QPM metoprolol succinate ER 100 mg PO QPM omeprazole 20 mg PO QPM trazodone 100 mg PO BEDTIME HPI Comments Details: Pleasant middle-aged woman with the resistant hypertension as essentially normal renal function here for follow-up. Today she has no specific renal issues. She has chronic low back pain due to L4-L5 disease. She has had steroid injections with minimal improvement 02/28/24 Underwent back surgery December 18, 2023 ; Still with pain ; NO edema 05/08/24 ;Feels better ; Back on HCTZ 11/06/24 OVerall doing well. No new renal issues [facility] Thrush Bronchitis Arthritis GERD (gastroesophageal reflux disease) Psoas mass Elevated cholesterol Chronic renal insufficiency Back pain HTN (hypertension) Surgical History History of back surgery (~12/2023) H/O colonoscopy Hx of excision of mass Hx of hemorrhoidectomy History of surgical removal of keloid Hx of tonsillectomy H/O: hysterectomy H/O section Family History Mother Mouth cancer Father Throat cancer Lung cancer Social History Household Members: Family Housing: House Are you a primary personal care home administrator to a significant other at home: No Do you presently have visiting nurse or other home services: No Alcohol intake: never Patient Tobacco Use Status: Former Tobacco user Tobacco use type: Cigarette service: No Physical Exam Vital Signs: Last Vital Signs Pulse 72 11/06/24 10:44 BP 102/70 11/06/24 10:44 Pulse Ox 90 L 11/06/24 10:44 Oxygen Delivery Method Room Air 11/06/24 10:44 BMI result Body Mass Index 26.6 Const General: comfortable; No acute distress Orientation/consciousness: patient oriented x3 Eyes General: appearance normal, both eyes and all related structures Visual Morin: normal visual morin by confrontation Neck Neck: Yes supple and Yes no JVD Resp Effort & Inspection: normal respiratory effort and respiratory effort not decreased Auscultation: rhonchi Cardio Palpation: no palpable S3 and no palpable S4 Heart sounds: no rubs GI Inspection: Yes normal to inspection Palpation (GI): Soft to palpation Percussion: Yes normal to percussion Auscultation: normal bowel sounds General: Yes no CVA tenderness Back/Spine/Pelvis Back: no CVA tenderness Skin General skin exam: no petechiae and no purpura Neuro General: patient oriented x3 and no focal motor deficits Extrem General: No clubbing and No edema Results Reviewed Nephrology Results: Sodium 137 mmol/L (135-145) 10/30/24 Potassium 3.5 mmol/L (3.3-5.1) 10/30/24 Chloride 102 mmol/L (96-108) 10/30/24 Carbon Dioxide 24 mmol/L (22-29) 10/30/24 BUN 16 mg/dL (9-16) 10/30/24 Creatinine 1.20 mg/dL (0.5-1.4) 10/30/24 Calcium 9.9 mg/dL (8.4-10.2) 10/30/24 Assessment & Plan Assessment & Plan (1) HTN (hypertension): Code(s): I10 - Essential (primary) hypertension Category: Medical Plan Middle-aged woman with resistant hypertension and essentially normal renal function. BP is acceptable No changes CKD 3 in a setting of HTN Creatinine stable at 1.2 Avoid nephrotoxins/NSAIDS Low salt diet Orders: Orders Basic Metabolic Panel 6 Months I10 - Essential (primary) hypertension Coding Level of Care Code Est Pt Level 4 (39676) Diagnoses HTN (hypertension) I10
--- OUTSIDE RECORDS SUMMARY | 2024-11-06 11:20 | XMS_ITS | Encounter Summary ---
Author Organization [facility] Address [address] [place] [address] Care Team Providers Care Social Worker Health Services Name Role Phone Laury Cartagena MD Primary Care Provider [phone] Encounter Details Date Type Department Care Team (Late Contact Info) Description 10/25/2024 Telephone Internal Medicine [facility] 175 [facility] 200 [place] [phone] Laury Cartagena MD 175 [facility] 200 [place] [phone] Social History Tobacco Use Types Packs/Day Years [...] Dental surgery to remove bottom teeth with [facility] on 11/13/24 on [facility] in [place], [place]. No EKG or labs are required for procedure. Paperwork was faxed on 10/23/24, was this received Please advise? Ty! documented in this encounter Plan of Treatment Upcoming Encounters Date Type Department Care Team (Late Contact Info) Description 03/12/2025 11:30 AM EDT Office Visit Internal Medicine - [place] 175 [facility] [address] [place] [address] Laury Cartagena MD [address] [phone] documented as of this encounter Visit Diagnoses Not on filedocumented in this encounter Care Teams Social Worker Health Services Relationship Specialty Start Date End Date Laury Cartagena MD [address] [phone] PCP - General Internal Medicine 07/19/18 documented as of this encounter
--- OUTSIDE RECORDS SUMMARY | 2024-11-06 11:20 | XMS_ITS | Clinical Summary ---
Author Organization 175 [facility] Address [address] [place] [address] Phone Care Team Providers Care Aligner Barrel And Receiver Name Role Phone Laury Cartagena MD Primary Care Provider [phone] Allergies Active Allergy Reactions Criticality Noted Date [...] day. 90 capsule 2 08/15/20 24 Active estradioL (ESTRACE) 2 mg tablet Take 1 tablet by mouth once daily 30 tablet 2 10/08/19 25 Active cloNIDine (CATAPRES) 0.1 mg tablet Take 2 tablets by mouth once daily 180 tablet 10/17/19 25 Active LORazepam (ATIVAN) 0.5 mg tablet TAKE 1 TABLET BY MOUTH AT BEDTIME NEEDED FOR ANXIETY 28 tablet 10/21/19 25 Active cyclobenzaprin e (FLEXERIL) 10 mg tablet Take 1 tablet by mouth three times daily as needed for muscle spasm 30 tablet 1 10/31/19 25 Active LORazepam (ATIVAN) 0.5 mg tablet TAKE 1 TABLET BY MOUTH AT BEDTIME NEEDED FOR ANXIETY 06/25/20 24 025 Discontinued cloNIDine (CATAPRES) 0.1 mg tablet Take 2 tablets by mouth once daily 180 tablet 07/23/20 24 025 Discontinued cyclobenzaprin e (FLEXERIL) 10 mg tablet Take 1 tablet (10 mg total) by mouth 3 (three) times a day if needed for muscle spasms. 30 tablet 1 08/28/20 24 025 Discontinued estradioL (ESTRACE) 2 mg [...] 10:30 AM EST Consult Internal Medicine - [address] [address] Laury Cartagena MD Pre-op examination (Primary Dx); Stage 3b chronic kidney disease (CMS/HCC); Mixed hyperlipidemia; Primary hypertension 10/25/2024 Telephone Internal Medicine - [address] [phone] Laury Cartagena MD 10/24/2024 Telephone Internal Medicine [address] [phone] Laury Cartagena MD Pre-op Visit (11/13/24 Dental surgery [facility]) from Last 3 Months Immunizations Name [...] kidney disease) stage 3, GFR 30-59 ml/min ([facility]/HCC) 08/28/2018 DX:CKD (chronic kidney dise ase) stage 3, GFR 30-59 ml/min ([facility]) Social History Tobacco Use Types Packs/Day Years [...] AM EDT Office Visit Internal Medicine - [place] 175 [facility] [address] [place] [address] Laury Cartagena MD [address] [place] [address] [address] [place] [address] Health Maintenance Due Date Last Done Comments Breast Cancer Screening 06/13/2020 06/13/2018 Depression Screening 08/16/2022 Falls Risk Assessment 08/16/2022 Medicare Annual Wellness Visit 08/16/2022 Social Influencers of Health Screening 08/16/2022 Pneumococcal Vaccine: 50+ Years (3 of 3 - PCV20 or PCV21) 03/08/2023 03/08/2018, 01/17/2014 COVID-19 Vaccine ( season) 2024 06/27/2023, 08/18/2022, 05/07/2022, Additional history exists Hypertension/CHF/CAD Annual BMP Blood Test 10/30/2025 10/30/2024, 01/15/2024, 01/15/2024 Cholesterol Screening (Lipid Panel) 07/20/2027 [...] Procedure Name Priority Date/Time Associated Diagnosis Comments CBC WITH AUTO DIFFERENTIAL Routine 10/30/2024 11:41 AM EST Stage 3b chronic kidney disease (CMS/HCC) Mixed hyperlipidemia Primary hypertension MAGNESIUM Routine 10/30/2024 11:41 AM EST Stage 3b chronic kidney disease (CMS/HCC) Mixed hyperlipidemia Primary hypertension COMPREHENSIVE METABOLIC PANEL Routine 10/30/2024 11:41 AM EST Stage 3b chronic kidney disease (CMS/HCC) Mixed hyperlipidemia Primary hypertension CBC AND DIFFERENTIAL Routine 10/30/2024 11:41 AM EST Stage 3b chronic kidney disease (CMS/HCC) Mixed hyperlipidemia Primary hypertension ECG INTERPRETATION AND REPORT ONLY Routine 10/30/2024 11:37 AM EST Stage 3b chronic kidney disease (CMS/HCC) Mixed hyperlipidemia Primary hypertension Pre-op examination LIPID PANEL Routine 07/20/2022 DXA BONE DENSITY STUDY 1+ SITS AXIAL SKEL Routine 06/17/2020 11:22 AM EDT Myalgia, unspecified site Other specified symptoms and signs involving the circulatory and respiratory systems Cough COLONOSCOPY Routine 06/10/2020 HEPATITIS C SCREENING Routine 05/18/2020 BUBBA SCREENING DIGITAL Routine 06/13/2018 4:33 PM EDT Encounter for screening mammogram for malignant neoplasm of breast from Last 3 Months or Most Recently Relevant to Health Maintenance Results * (ABNORMAL) CBC auto differential (10/30/2024 11:41 AM EST) WBC 8.1 4.8 - 10.8 /[facility] LAB HEMETOLOGY METHOD 10/30/2024 6:25 PM [facility] RBC 5.00(H) 3.80 - 4.80 M/mcL LAB HEMETOLOGY METHOD 10/30/2024 6:25 PM [facility] Hemoglobin 14.0 11.5 - 16.0 g/dL LAB HEMETOLOGY METHOD 10/30/2024 6:25 PM [facility] Hematocrit 45.3 35.0 - 47.0 % LAB HEMETOLOGY METHOD 10/30/2024 6:25 PM [facility] MCV 91.1 79.0 - 98.0 FL LAB HEMETOLOGY METHOD 10/30/2024 6:25 PM [facility] MCH 28.2 27.0 - 32.0 pcg LAB HEMETOLOGY METHOD 10/30/2024 6:25 PM [facility] MCHC 30.9(L) 32.0 - 37.0 g/dL LAB HEMETOLOGY METHOD 10/30/2024 6:25 PM [facility] RDW 14.2 11.0 - 15.0 % LAB HEMETOLOGY METHOD 10/30/2024 6:25 PM [facility] Platelets 336 130 - 400 K/mcL LAB HEMETOLOGY METHOD 10/30/2024 6:25 PM [facility] MPV 9.7 7.0 - 11.0 FL LAB HEMETOLOGY METHOD 10/30/2024 6:25 PM [facility] NRBC 0.0 <1.0 % LAB HEMETOLOGY METHOD 10/30/2024 6:25 PM [facility] NRBC Absolute 0.00 <0.10 K/mcL LAB HEMETOLOGY METHOD 10/30/2024 6:25 PM [facility] Neutrophils Relative 61.1 % LAB HEMETOLOGY METHOD 10/30/2024 6:25 PM [facility] Lymphocytes Relative 32.6 % LAB HEMETOLOGY METHOD 10/30/2024 6:25 PM [facility] Monocytes Relative 5.8 % LAB HEMETOLOGY METHOD 10/30/2024 6:25 PM [facility] Eosinophils Relative 0.2 % LAB HEMETOLOGY METHOD 10/30/2024 6:25 PM [facility] Basophils Relative 0.2 % LAB HEMETOLOGY METHOD 10/30/2024 6:25 PM [facility] Immature Granulocytes Relative 0.1 % LAB HEMETOLOGY METHOD 10/30/2024 6:25 PM [facility] Neutrophils Absolute 4.91 1.50 - 7.00 K/mcL LAB HEMETOLOGY METHOD 10/30/2024 6:25 PM [facility] Lymphocytes Absolute 2.63 1.00 - 5.00 K/mcL LAB HEMETOLOGY METHOD 10/30/2024 6:25 PM [facility] Monocytes Absolute 0.47 0.20 - 1.00 K/mcL LAB HEMETOLOGY METHOD 10/30/2024 6:25 PM [facility] Eosinophils Absolute 0.02 0.00 - 0.50 K/mcL LAB HEMETOLOGY METHOD 10/30/2024 6:25 PM [facility] Basophils Absolute 0.02 0.00 - 0.20 K/mcL LAB HEMETOLOGY METHOD 10/30/2024 6:25 PM [facility] Immature Granulocytes Absolute 0.01 0.00 - 0.03 K/mcL LAB HEMETOLOGY METHOD 10/30/2024 6:25 PM [facility] Blood Venous blood specimen / Unknown Venipuncture / Unknown 10/30/2024 11:41 AM EST 10/30/2024 11:41 AM EST us Laury Cartagena MD LAB BLOOD ORDERABLES Final Res ult [facility] [address] [place] [address], [place] [phone] * (ABNORMAL) Magnesium (10/30/2024 11:41 AM EST) Magnesium 1.7(L) 1.9 - 2.6 mg/dL LAB CHEMISTRY METHOD 10/30/2024 6:37 PM [facility] Blood Venous blood specimen / Unknown Venipuncture / Unknown 10/30/2024 11:41 AM EST 10/30/2024 11:41 AM EST Laury Cartagena MD LAB BLOOD ORDERABLES Final Res ult Performing Organization Address [facility]/ZIP Co de Phone Number [facility] [address] [place] [address], [place] [phone] * (ABNORMAL) Comprehensive metabolic panel (10/30/2024 11:41 AM EST) Sodium 135 133 - 145 mmol/L LAB CHEMISTRY METHOD 10/30/2024 6:37 PM [facility] Potassium 3.8 3.5 - 5.5 mmol/L LAB CHEMISTRY METHOD 10/30/2024 6:37 PM [facility] Chloride 102 96 - 110 mmol/L LAB CHEMISTRY METHOD 10/30/2024 6:37 PM [facility] CO2 29 21 - 32 mmol/L LAB CHEMISTRY METHOD 10/30/2024 6:37 PM [facility] Anion Gap 4 3 - 11 LAB CHEMISTRY METHOD 10/30/2024 6:37 PM [facility] Glucose 100 70 - 100 mg/dL LAB CHEMISTRY METHOD 10/30/2024 6:37 PM [facility] BUN 15 5 - 25 mg/dL LAB CHEMISTRY METHOD 10/30/2024 6:37 PM [facility] Creatinine 1.44(H) 0.50 - 1.10 mg/dL LAB CHEMISTRY METHOD 10/30/2024 6:37 PM [facility] eGFR 39(L) >=60 mL/min/1. 73m2 LAB CHEMISTRY METHOD 10/30/2024 6:37 PM [facility] Comment:Calculation based on the??Chronic Kidney Disease Epidemiology Collaboration (CKD-EPI) equation refit??without adjustment for race. BUN/Creatinine Ratio 10.4 LAB CHEMISTRY METHOD 10/30/2024 6:37 PM [facility] Calcium 10.1 8.5 - 10.5 mg/dL LAB CHEMISTRY METHOD 10/30/2024 6:37 PM [facility] AST (SGOT) 18 10 - 42 unit/L LAB CHEMISTRY METHOD 10/30/2024 6:37 PM [facility] ALT (SGPT) 21 10 - 60 unit/L LAB CHEMISTRY METHOD 10/30/2024 6:37 PM [facility] Alkaline Phosphatase 70 42 - 121 unit/L LAB CHEMISTRY METHOD 10/30/2024 6:37 PM [facility] Total Protein 7.0 6.0 - 8.0 g/dL LAB CHEMISTRY METHOD 10/30/2024 6:37 PM [facility] Albumin 3.9 3.2 - 5.0 g/dL LAB CHEMISTRY METHOD 10/30/2024 6:37 PM [facility] Total Bilirubin 0.6 0.0 - 1.4 mg/dL LAB CHEMISTRY METHOD 10/30/2024 6:37 PM [facility] Blood Venous blood specimen / Unknown Venipuncture / Unknown 10/30/2024 11:41 AM EST 10/30/2024 11:41 AM EST us Laury Cartagena MD LAB BLOOD ORDERABLES Final Res ult [facility] [address] [place] [address], * ECG Interpretation and Report Only (10/30/2024 11:37 AM EST) Narrative Laury Cartagena MD - 10/30/2024 11:37 AM EST Normal sinus rhythm, no ST-T changes Laury Cartagena MD ECG ORDERABLES Final Result * (ABNORMAL) Lipid panel (07/20/2022) LDL/HDL Ratio 4 0 - 4 Triglycerides 159(A) 0 - 150 mg/dL Cholesterol 224(A) 0 - 200 mg/dL HDL 52 >=40 mg/dL LDL Cholesterol 141(A) 0 - 100 mg/dL Blood Venous blood specimen / Unknown [facility] Provider LAB BLOOD ORDERABLES Randi l Result * DXA BONE DENSITY STUDY 1+ [...] classified as having normal bone density. [facility] Department of Internal Medicine recommends using National [...] beclassified as having normal bone density. [facility] Department of Internal Medicine recommendsusing National Osteoporosis [...] fracture risk by FRAX. Zahra Allen MD IMG DXA PROCEDURES Final Resul t * Colonoscopy (06/10/2020) [facility] Colonoscopy Abstracted, No interpretation Anatomical Region Laterality Modality Other Historical Provider HEALTH MAINTENANCE Final Result * Hepatitis C Screening (05/18/2020) [facility] Hepatitis C Screening Abstracted Historical Provider HEALTH MAINTENANCE Final Result * BUBBA SCREENING DIGITAL (06/13/2018 4:33 PM EDT) Anatomical Region Laterality Modality Mammography 06/13/2018 9:25 AM EDT Narrative 06/13/2018 4:33 PM EDT [facility] Diagnostic Imaging Department [address] [place], [place] [id number] Patient: ??SUDHA NULL ?/Age/Sex: 1955 - 63 - F Unit#: ??[id number] ? Location/Status: ??SPDIMAM/REG CLI ? Mnemonic/Ordering Site: ??DIGSC/SPMAM Ordering Physician: ??RAUL GREEN MD [facility] Screening Digital - 06/13/18 - 947 EXAM: [facility] Screening Digital EXAM DATE AND TIME: 06/13/2018 9:48 AM HISTORY: ??Screening. COMPARISON: ??08/24/16, 05/06/15, 11/30/10 TECHNIQUE: CC and MLO views of both breasts were obtained using full field digital mammography. Bilateral digital breast tomosynthesis was performed in the MLO projection. Computer aided detection with the [employer] was employed. TISSUE DENSITY: b. There are [...] Routine screening mammogram BILATERAL in 1 year. 51176, 42251 3342F, 7025F Dictating Physician: ??JOSEFINA SANTANA MD Electronically Signed by: ??JOSEFINA SANTANA MD Dic Date/Time: ??06/13/18 1633 Sign date/Time: ??06/13/18 1633 Procedure Note Josefina Santana MD - 09/06/2022 [facility] Diagnostic Imaging Department [address] [place] [address] Patient: SUDHA NULLO.B./Age/Sex: 1955 - 63 - F Unit#: [id number] Location/Status: SPDIMAM/REG CLI Mnemonic/Ordering Site: [facility] Ordering Physician: RAUL GREEN MD [facility] Screening Digital - 06/13/18947 EXAM: [facility] Screening Digital EXAM DATE AND TIME: 06/13/2018 9:48 AM HISTORY: Screening. COMPARISON: 08/24/16, 05/06/15, 11/30/10 TECHNIQUE: CC and MLO views of both breasts were obtained using fullfield digital mammography. Bilateral digital breast tomosynthesis was performedin the MLO projection. Computer aided detection with the [employer] employed. TISSUE DENSITY: b. There are scattered [...] Routine screening mammogram BILATERAL in 1 year. 36495, 27114 3342F, 7025F Dictating Physician: JOSEFINA SANTANA MD Electronically Signed by: JOSEFINA SANTANA MD Dic Date/Time: 06/13/18 1633 Sign date/Time: 06/13/18 163 Raul Green MD IMG BI PROCEDURES Final Result from Last 3 Months or Most Recently Relevant to Health Maintenance Insurance [employer] Care Teams Aligner Barrel And Receiver Relationship Specialty Start Date End Date Laury Cartagena MD [address] [place] [address] [address] [place] [phone] PCP - General Internal Medicine 07/19/18
--- OUTSIDE RECORDS SUMMARY | 2024-11-06 11:21 | XMS_ITS | Clinical Summary ---
Author Organization [facility] Address [address] [facility] [address] [place] [address] Phone Care Team Providers Care Field Advisor Name Role Phone Laury Cartagena MD Primary Care Provider [phone] Allergies Active Allergy Reactions Criticality Noted Date [...] Insurance [employer] Care Teams Field Advisor Relationship Specialty Start Date End Date Laury Cartagena MD [address] [place] [phone] PCP - General 09/28/20
--- OUTSIDE RECORDS SUMMARY | 2024-11-06 11:21 | XMS_ITS | Encounter Summary ---
Author Organization [facility] Address [address] [place] [address] Care Team Providers Care Refrigerated Company Driver Name Role Phone Laury Cartagena MD Primary Care Provider [phone] Reason for Visit * Reason Onset Date Comments Pre-op Visit 10/24/2024 11/13/24 Dental s urgery [facility] Encounter Details Date Type Department Care Team (Late st Contact Info) Description 10/24/2024 Telephone Internal Medicine - [place] [address] [facility] [address] [place] [address] Laury Cartagena MD [address] [facility] [address] [place] [address] Pre-op Visit (11/13/24 Dental surgery [facility]) Social History Tobacco Use Types Packs/Day [...] Dental surgery to remove bottom teeth with [facility] on 11/13/24 on [facility] in [place], [place]. No EKG or labs are required for procedure. Please call pt to schedule Pre-Op appt, Ty! [phone] or [phone] documented in this encounter Plan of Treatment Upcoming Encounters Date Type Department Care Team (Late st Contact Info) Description 03/12/2025 11:30 AM EDT Office Visit Internal Medicine - [place] 175 [facility] [address] [place] [phone] Laury Cartagena MD 175 [facility] [address] [place] [phone] documented as of this encounter Visit Diagnoses Not on filedocumented in this encounter Care Teams Refrigerated Company Driver Relationship Specialty Start Date End Date Laury Cartagena MD 175 [facility] [address] [place] [phone] PCP - General Internal Medicine 07/19/18 documented as of this encounter
--- OUTSIDE RECORDS SUMMARY | 2024-11-06 11:21 | XMS_ITS | Encounter Summary ---
Author Organization [facility] Address [address] [place] [address] Care Team Providers Care Insurance Processing Clerk Name Role Phone Laury Cartagena MD Primary Care Provider [phone] Reason for Visit * Reason Comments Pre-op Exam Dental Encounter Details Date Type Department Care Team ([facility] st Contact Info) Description 10/30/2024 10:30 AM EST Consult Internal Medicine - [place] [address] [phone] Laury Cartagena MD 175 [facility] [address] [place] [phone] Pre-op examination (Primary Dx); Stage 3b chronic [...] stage 3, GFR 30-59 ml/min (CMS/[facility]) 08/28/2018 Insomnia 06/04/2018 Hyperlipidemia 03/08/2018 Hypertension [...] mouth once daily 180 tablet 0 cloNIDine ([id number]) 0.2 mg/[address] onto the skin. [...] AM EDT Office Visit Internal Medicine - [place] [address] [facility] [address] [place] [phone] Laury Cartagena MD [address] [facility] [address] [place] [phone] Scheduled Orders Name Type Priority Associated Diagnoses Orde r Schedule ECG 12 lead Tracing Only ECG Routine [...] examination documented in this encounter Results * (ABNORMAL) Magnesium (10/30/2024 11:41 AM EST) Pathologist [facility] Magnesium 1.7(L) 1.9 - 2.6 mg/dL LAB CHEMISTRY METHOD 10/30/2024 6:37 PM EST [facility] Blood Venous blood specimen / Unknown Venipuncture / Unknown 10/30/2024 11:41 AM EST 10/30/2024 11:41 AM EST us Laury Cartagena MD LAB BLOOD ORDERABLES Final Res ult [facility] [address] [place] [address], * (ABNORMAL) Comprehensive metabolic panel (10/30/2024 11:41 AM EST) Pathologist [facility] Sodium 135 133 - 145 mmol/L LAB CHEMISTRY METHOD 10/30/2024 6:37 PM [facility] Potassium 3.8 3.5 - 5.5 mmol/L LAB CHEMISTRY METHOD 10/30/2024 6:37 PM [facility] Chloride 102 96 - 110 mmol/L LAB CHEMISTRY METHOD 10/30/2024 6:37 PM [facility] CO2 29 21 - 32 mmol/L LAB CHEMISTRY METHOD 10/30/2024 6:37 PM [facility] Anion Gap 4 3 - 11 LAB CHEMISTRY METHOD 10/30/2024 6:37 PM [facility] Glucose 100 70 - 100 mg/dL LAB CHEMISTRY METHOD 10/30/2024 6:37 PM [facility] BUN 15 5 - 25 mg/dL LAB CHEMISTRY METHOD 10/30/2024 6:37 PM [facility] Creatinine 1.44(H) 0.50 - 1.10 mg/dL LAB CHEMISTRY METHOD 10/30/2024 6:37 PM [facility] eGFR 39(L) >=60 mL/min/1. 73m2 LAB CHEMISTRY METHOD 10/30/2024 6:37 PM [facility] Comment:Calculation based on the??Chronic Kidney Disease Epidemiology Collaboration (CKD-EPI) equation refit??without adjustment for race. BUN/Creatinine Ratio 10.4 LAB CHEMISTRY METHOD 10/30/2024 6:37 PM [facility] Calcium 10.1 8.5 - 10.5 mg/dL LAB CHEMISTRY METHOD 10/30/2024 6:37 PM [facility] AST (SGOT) 18 10 - 42 unit/L LAB CHEMISTRY METHOD 10/30/2024 6:37 PM [facility] ALT (SGPT) 21 10 - 60 unit/L LAB CHEMISTRY METHOD 10/30/2024 6:37 PM [facility] Alkaline Phosphatase 70 42 - 121 unit/L LAB CHEMISTRY METHOD 10/30/2024 6:37 PM EST [facility] Total Protein 7.0 6.0 - 8.0 g/dL LAB CHEMISTRY METHOD 10/30/2024 6:37 PM EST [facility] Albumin 3.9 3.2 - 5.0 g/dL LAB CHEMISTRY METHOD 10/30/2024 6:37 PM EST [facility] Total Bilirubin 0.6 0.0 - 1.4 mg/dL LAB CHEMISTRY METHOD 10/30/2024 6:37 PM EST [facility] Blood Venous blood specimen / Unknown Venipuncture / Unknown 10/30/2024 11:41 AM EST 10/30/2024 11:41 AM EST us Laury Cartagena MD LAB BLOOD ORDERABLES Final Res ult [facility] [address] [place] [address], * ECG Interpretation and Report Only (10/30/2024 11:37 AM EST) Narrative Laury Cartagena MD - 10/30/2024 11:37 AM EST Normal sinus rhythm, no ST-T changes us Laury Cartagena MD ECG ORDERABLES Final Result documented in this encounter Visit Diagnoses Diagnosis Pre-op examination- Primary Stage 3b chronic kidney disease (CMS/HCC) Mixed hyperlipidemia Primary hypertension Unspecified essential hypertension documented in this encounter Care Teams Insurance Processing Clerk Relationship Specialty Start Date End Date Laury Cartagena MD [address] [phone] PCP - General Internal Medicine 07/19/18 documented as of this encounter
== END 2024-11-06 10:58 | disposition home or self-care (01) ==
PROVIDERS: PCP Internal Medicine; Visit Provider Internal Medicine Hypertension Specialist
DX: I10 Essential (primary) hypertension (principal)
CPT/HCPCS: 99214

== ENCOUNTER → 2024-11-06 10:42 | Outpatient (BNVA) | payer OTHER, SELFPAY | PROVIDERS: PCP Internal Medicine; Visit Provider Internal Medicine Hypertension Specialist ==

== ENCOUNTER 2025-04-16 14:17 | Outpatient (AMB) | payer OTHER, SELFPAY ==
[2025-04-16 14:26] VITALS: BP 118/88; PULSE 89; O2SAT 98; BMI 26.7
--- NOTE | 2025-04-16 14:26 | HO.NEPHOV_ITS ---
Vital Signs 04/16/25 14:26 Height 5 ft 3 in Weight 151 lb BMI 26.7 BP 118/88 Blood Pressure Location Lt brachial Position Sitting Pulse 89 Pulse Source Pulse Oximeter Pulse Oximetry (%) 98 Oxygen Delivery Method Room Air Intake Visit Reasons: Feet swelling Ticket Clerk Required: No Accompanied by: Self / Same As Patient Allergies lisinopril Adverse Reaction (Intermediate, Verified 04/16/25 14:28) Cough Medication List - Last Reconciled 04/16/25 by Espinoza Murrieta MD acetaminophen (Acetaminophen Extra Strength) 1,000 mg (2 x 500 mg) PO TID PRN albuterol sulfate 90 mcg/actuation 2 puffs inhalation Q4H PRN aspirin (Adult Aspirin Regimen) 81 mg PO QPM atorvastatin 20 mg PO BEDTIME clonidine HCl 0.2 mg PO BEDTIME cyclobenzaprine 10 mg PO TID cyclobenzaprine 5 mg PO BEDTIME PRN estradiol 2 mg PO .weekly gabapentin 300 mg PO TID hydrochlorothiazide 25 mg PO DAILY hydroxyzine HCl 25 mg PO TID PRN lorazepam 0.5 mg PO DAILY PRN losartan 100 mg PO QPM magnesium oxide 400 mg PO QPM metoprolol succinate ER 100 mg PO QPM omeprazole 20 mg PO QPM trazodone 100 mg PO BEDTIME HPI Comments Details: Pleasant middle-aged woman with the resistant hypertension as essentially normal renal function here for follow-up. Today she has no specific renal issues. She has chronic low back pain due to L4-L5 disease. She has had steroid injections with minimal improvement 02/28/24 Underwent back surgery December 18, 2023 ; Still with pain ; NO edema 05/08/24 ;Feels better ; Back on HCTZ 11/06/24 OVerall doing well. No new renal issues 04/16/25 s/p back surgery- no further back pain c/o leg pains- radiating down Had an episode of leg edema and subsided spontaneaously [facility] Medical History Thrush Bronchitis Arthritis GERD (gastroesophageal reflux disease) Psoas mass Elevated cholesterol Chronic renal insufficiency Back pain HTN (hypertension) Surgical History History of back surgery (~12/2023) H/O colonoscopy Hx of excision of mass Hx of hemorrhoidectomy History of surgical removal of keloid Hx of tonsillectomy H/O: hysterectomy H/O section Family History Mother Mouth cancer Father Throat cancer Lung cancer Social History Household Members: Family Housing: House Are you a primary palliative care coordinator to a significant other at home: No Do you presently have visiting nurse or other home services: No Alcohol intake: never Patient Tobacco Use Status: Former Tobacco user Tobacco use type: Cigarette service: No Physical Exam Vital Signs: Last Vital Signs Pulse 89 04/16/25 14:26 BP 118/88 04/16/25 14:26 Pulse Ox 98 04/16/25 14:26 Oxygen Delivery Method Room Air 04/16/25 14:26 BMI result Body Mass Index 26.7 Const General: comfortable; No acute distress Orientation/consciousness: patient oriented x3 Eyes General: appearance normal, both eyes and all related structures Visual Morin: normal visual morin by confrontation Neck Neck: Yes supple and Yes no JVD Resp Effort & Inspection: normal respiratory effort and respiratory effort not decreased Auscultation: rhonchi Cardio Palpation: no palpable S3 and no palpable S4 Heart sounds: no rubs GI Inspection: Yes normal to inspection Palpation (GI): Soft to palpation Percussion: Yes normal to percussion Auscultation: normal bowel sounds General: Yes no CVA tenderness Back/Spine/Pelvis Back: no CVA tenderness Skin General skin exam: no petechiae and no purpura Neuro General: patient oriented x3 and no focal motor deficits Extrem General: No clubbing and No edema Results Reviewed Nephrology Results: Sodium, (135-145) 137 mmol/L 10/30/24 Potassium, (3.3-5.1) 3.5 mmol/L 10/30/24 Chloride, (96-108) 102 mmol/L 10/30/24 Carbon Dioxide, (22-29) 24 mmol/L 10/30/24 BUN, (9-16) 16 mg/dL 10/30/24 Creatinine, (0.5-1.4) 1.20 mg/dL 10/30/24 Calcium, (8.4-10.2) 9.9 mg/dL 10/30/24 Assessment & Plan Assessment & Plan (1) HTN (hypertension): Code(s): I10 - Essential (primary) hypertension Category: Medical Plan Middle-aged woman with resistant hypertension and essentially normal renal function. BP is acceptable No changes CKD 3 in a setting of HTN Creatinine stable at 1.2 Avoid nephrotoxins/NSAIDS Low salt diet Leg edema Resolved Will check urine for protein Orders: Orders UA and rflx microscopic Today I10 - Essential (primary) hypertension Creatinine Urine Today I10 - Essential (primary) hypertension Total Protein Urine Random Today I10 - Essential (primary) hypertension Coding Level of Care Code Est Pt Level 4 (96914) Diagnoses HTN (hypertension) I10
--- OUTSIDE RECORDS SUMMARY | 2025-04-16 14:59 | XMS_ITS | Clinical Summary ---
Author Organization [facility] Address [address] [facility] [address] [place] [address] Phone Care Team Providers Care Classroom Assistant Name Role Phone Laury Cartagena MD Primary Care Provider [phone] Allergies Active Allergy Reactions Criticality Noted Date [...] 06/07/2023 Vitamin D deficiency 05/25/2015 06/07/2023 Immunizations Immunization Administration Dates Next Due Pneumococcal Polysaccharide 01/17/2014 [...] Colorectal Cancer Screening: Sigmoidoscopy 2002 Pneumococcal Vaccine: 50+ Years (3 of 3 - PCV20 or PCV21) 01/17/2019 03/08/2018, 01/17/2014 Influenza Vaccine (#1) 2025 09/07/2017 Pneumococcal Vaccine: Peds ( 0 to 5 Years) and At-Risk Patients (6 to 49 Years) Discontinued 03/08/2018, 01/17/2014 Hepatitis B Vaccine Aged Out No longe r eligible based on patient's age to complete this topic Insurance Tufts Medicare Tufts Medicare Care Teams Classroom Assistant Relationship Specialty Start Date End Date Laury Cartagena MD [address] [place] [id number] PCP - General 09/28/20
--- OUTSIDE RECORDS SUMMARY | 2025-04-16 14:59 | XMS_ITS | Encounter Summary ---
Author Organization [facility] Address [address] [place] [address] Care Team Providers Care Backfiller Name Role Phone Laury Cartagena MD Primary Care Provider [phone] Encounter Details Date Type Department Care Team (Late Contact Info) Description 04/01/2025 Telephone Internal Medicine [facility] [address] [address] Laury Cartagena MD [address] [address] Social History Tobacco Use Types Packs/Day Years [...] on file documented as of this encounter Plan of Treatment Upcoming Encounters Date Type Department Care Team (Late Contact Info) Description 09/09/2025 11:15 AM EST Office Visit Internal Medicine [facility] [address] [address] Laury Cartagena MD [address] [address] documented as of this encounter Visit Diagnoses Not on filedocumented in this encounter Additional Health Concerns Assessment Noted Time PHQ-9 Depression Total Score: 0 03/12/20 11:39 AM EDT documented as of this encounter Care Teams Backfiller Relationship Specialty Start Date End Date Laury Cartagena MD [address] [place] [phone] PCP - General Internal Medicine 07/19/18 documented as of this encounter
--- OUTSIDE RECORDS SUMMARY | 2025-04-16 14:59 | XMS_ITS ---
Author Name [facility] Organization Unknown Care Team Organization Name Specialty Phone Email Start Date End Da te [facility] 07/26/2022 05/06/20 24
--- OUTSIDE RECORDS SUMMARY | 2025-04-16 14:59 | XMS_ITS | Clinical Summary ---
Author Organization [facility] Address [address] [facility] Radha [facility] [address] [place] [address] Care Team Providers Care Burlapper Name Role Phone Laury Cartagena MD Primary Care Provider [phone] Allergies Active Allergy Reactions Criticality Noted Date Comments Lisinopril Cough 10/17/2023 Medications amLODIPine (Norvasc) 10 mg tablet Take 10 mg by mouth once daily. 03/03/2021 Active aspirin 81 mg EC tablet Take 1 tablet by mouth once daily. Active atorvastatin (Lipitor) 20 mg tablet Take 20 mg by mouth once daily. 09/04/2023 Active cefdinir (Omnicef) 300 mg capsule Take 300 mg by mouth every 12 (twelve) hours. 10/31/2022 Active cloNIDine (Catapres) 0.1 mg tablet Take 0.1 mg by mouth twice daily. 08/31/2023 Active cyclobenzaprine (Flexeril) 10 mg tablet Take 5 mg by mouth if needed in the morning and at bedtime. 02/08/2023 Active estradiol (Estrace) 2 mg tablet Take 2 mg by mouth once daily. 10/04/2023 Active gabapentin (Neurontin) 600 mg tablet Take 600 mg by mouth three times daily. 08/22/2023 Active hydroCHLOROthia zide (HYDRODiuril) 25 mg tablet Take 25 mg by mouth once daily. 05/26/2023 Active LORazepam (Ativan) 0.5 mg tablet Take 0.5 mg by mouth if needed at bedtime. 09/23/2023 Active losartan (Cozaar) 100 mg tablet Take 100 mg by mouth once daily. 08/22/2023 Active magnesium oxide (Mag-Ox) 400 mg (241.3 mg magnesium) tablet Take 1 tablet by mouth twice daily. 04/28/2023 Active metoprolol succinate XL (Toprol-XL) 100 mg 24 hr tablet Take 100 mg by mouth twice daily. 08/22/2023 Active omeprazole (PriLOSEC) [address] capsule Take 20 mg by mouth once daily. 09/04/2023 Active simvastatin (Zocor) 10 mg tablet Take 1 tablet by mouth once daily. Active tiZANidine (Zanaflex) 2 mg tablet Take 2 mg by mouth every 6 (six) hours if needed. Active traZODone (Desyrel) 100 mg tablet Take 100 mg by mouth at bedtime. 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/2023 Chronic kidney disease due to hypertension 03/0210/17/2023 Hyperkalemia 03/02/2021 10/17/2023 Insomnia 06/04/2018 10/17/2023 Hyperlipidemia 03/08/2018 10/17/2023 Hypertension 03/08/2018 10/17/2023 Gastroesophageal reflux disease 09/07/2017 10/17/2023 Vitamin D deficiency 05/25/2015 10/17/2023 Encounters Date Type Department Care Team Description 02/28/2025 Telephone [facility] Neurology [address] [place] [address] [place] from Last 3 Months Social History Tobacco Use Types Packs/Day Years Used Date Smoking Tobacco: Never Smokeless Tobacco: Never Tobacco Cessation:Counseling Given: Not Answered Alcohol Use Standard Drinks/Week Comments Not Currently 0 (1 standard drink = 0.6 oz pur e alcohol) Comments Unknown Sex and Gender Information Value Date Recorded Sex Assigned at Not on file Legal Sex Female 2:04 PM EST Gender Identity Not on file Sexual Orientation Not on file Last Filed Vital Signs Vital Sign Reading Time Taken Comments Blood Pressure 117/76 12/04/2023 1:25 PM EDT Pulse 76 12/04/2023 1:25 PM EDT Temperature 35.7 C (96.3 F) 12/04/2023 1:25 PM EDT Respiratory Rate 16 12/04/2023 1:25 PM EDT Oxygen Saturation 100% 12/04/2023 1:25 PM EDT Inhaled Oxygen Concentration - - Weight 65.4 kg (144 lb 3.2 oz) 12/04/2023 1:25 P M EDT Height 160 cm (5' 3 ) 12/04/2023 1:25 PM EDT Body Mass Index 25.54 12/04/2023 1:25 PM EDT Plan of Treatment Health Maintenance Due Date Last Done Comments Bone Density Scan 1953 CT Colonography 1953 Colonoscopy 1953 Colorectal Cancer Screening 1953 FIT-DNA 1953 FIT 1953 FOBT 1953 Lipid Panel 1953 Sigmoidoscopy 1953 Hepatitis C Screening 1971 DTaP/Tdap/Td Vaccines (1 - Tdap) 02/17/1972 Mammogram 1993 Medicare Annual Wellness (AWV) 07/19/2022 Pneumococcal Vaccine: 50+ Years (3 of 3 - PCV20 or PCV21) 03/08/2023 03/08/2018, 01/17/2014 COVID-19 Vaccine ( season) 2024 06/27/2023, 08/18/2022, 05/07/2022, Additional history exists Depression Screening 09/18/2024 Influenza Vaccine (#1) 2025 , 06/15/2022, 06/29/2021, Additional history exists Zoster Vaccines Completed 08/31/2021, 06/29/2021 HIB Vaccines Aged Out No longer eligi [...] age to complete this topic Meningococcal B Vaccine Aged Out No l onger eligible based on patient's age to complete this topic Meningococcal Vaccine Aged Out No anjali rich eligible based on patient's age to complete this topic Rotavirus Vaccines Aged Out No longer eligible based on patient's age to complete this topic Insurance [employer] PREFERRED OTHER Care Teams Burlapper Relationship Specialty Start Date End Date Laury Cartagena MD [address] [address] PCP - General Applied Research Director 10/17/23
== END 2025-04-16 15:09 | disposition home or self-care (01) ==
LOC: HO.HKAE 14:18
PROVIDERS: PCP Internal Medicine; Visit Provider Internal Medicine Hypertension Specialist
DX: I10 Essential (primary) hypertension (principal)
CPT/HCPCS: 99214

== ENCOUNTER 2025-04-18 10:23 | Outpatient (REF) | payer OTHER, SELFPAY ==
--- OUTSIDE RECORDS SUMMARY | 2025-04-18 10:34 | XMS_ITS | Encounter Summary ---
Author Organization [facility] Address [address] [place] [address] Care Team Providers Care Commercial Portfolio Manager Name Role Phone Laury Cartagena MD Primary Care Provider [phone] Encounter Details Date Type Department Care Team (Late Contact Info) Description 04/01/2025 Telephone Internal Medicine [facility] [address] [phone] Laury Cartagena MD [address] [phone] Social History Tobacco Use Types [...] 11:15 AM EST Office Visit Internal Medicine [facility] [address] [phone] Laury Cartagena MD [address] [phone] documented as of this encounter Visit Diagnoses Not on filedocumented in this encounter Additional Health Concerns Assessment Noted Time PHQ-9 Depression Total Score: 0 03/12/20 11:39 AM EDT documented as of this encounter Care Teams Commercial Portfolio Manager Relationship Specialty Start Date End Date Laury Cartagena MD [address] [place] [phone] PCP - General Internal Medicine 07/19/18 documented as of this encounter
--- OUTSIDE RECORDS SUMMARY | 2025-04-18 10:34 | XMS_ITS | Clinical Summary ---
Author Organization [facility] Address [address] [facility] [address] [place] [address] Phone Care Team Providers Care Product Manager Medical Device Name Role Phone Laury Cartagena MD Primary Care Provider [phone] Allergies Active Allergy Reactions Criticality Noted Date [...] Insurance Tufts Medicare Tufts Medicare Care Teams Product Manager Medical Device Relationship Specialty Start Date End Date Laury Cartagena MD [address] [place] [phone] PCP - General 09/28/20
--- OUTSIDE RECORDS SUMMARY | 2025-04-18 10:34 | XMS_ITS | Clinical Summary ---
Author Organization [facility] Address [address] [facility] Radha [facility] [address] [place] [address] Care Team Providers Care Psych Social Worker Name Role Phone Laury Cartagena MD Primary Care Provider [phone] Allergies Active Allergy Reactions Criticality Noted [...] Type Department Care Team Description 02/28/2025 Telephone [facility] Neurology [address] [place] [address] [place] from Last 3 Months Social History [...] Insurance [employer] PREFERRED OTHER Care Teams Psych Social Worker Relationship Specialty Start Date End Date Laury Cartagena MD [address] [address] PCP - General Sandblast Or Shotblast Equipment Tender 10/17/23
[2025-04-18 13:59] LABS: Appearance Urine Clear; Glucose Urine UA Negative (Negative); PH 5.5 (5.0-9.0); Specific Gravity - Urine 1.020 (1.005-1.025)
[2025-04-18 15:14] LABS: Total Protein Urine Random < 7 mg/dL (<12)
== END 2025-04-18 10:24 | disposition home or self-care (01) ==
LOC: HO.HKASLDS 10:23
PROVIDERS: Visit Provider Internal Medicine Hypertension Specialist
DX: I10 Essential (primary) hypertension (principal)
CPT/HCPCS: 81003; 82570; 84156

== ENCOUNTER 2025-05-07 09:53 | Outpatient (AMB) | payer OTHER, SELFPAY ==
[2025-05-07 09:58] VITALS: BP 112/74; PULSE 74; O2SAT 98; BMI 26.7
--- NOTE | 2025-05-07 09:58 | HO.NEPHOV ---
Vital Signs 05/07/25 09:58 Height 5 ft 3 in Weight 151 lb BMI 26.7 BP 112/74 Blood Pressure Location Lt brachial Position Sitting Pulse 74 Pulse Source Pulse Oximeter Pulse Oximetry (%) 98 Intake Visit Reasons: 6 mnts/ Conf Balance Truer Required: No Accompanied by: Spouse Allergies lisinopril Adverse Reaction (Intermediate, Verified 05/07/25 10:00) Cough Medication List - Last Reconciled 05/07/25 by Espinoza Murrieta MD acetaminophen (Acetaminophen Extra Strength) 1,000 mg (2 x 500 mg) PO TID PRN albuterol sulfate 90 mcg/actuation 2 puffs inhalation Q4H PRN aspirin (Adult Aspirin Regimen) 81 mg PO QPM atorvastatin 20 mg PO BEDTIME clonidine HCl 0.2 mg PO BEDTIME cyclobenzaprine 10 mg PO TID cyclobenzaprine 5 mg PO BEDTIME PRN estradiol 2 mg PO .weekly gabapentin 300 mg PO TID hydrochlorothiazide 25 mg PO DAILY hydroxyzine HCl 25 mg PO TID PRN lorazepam 0.5 mg PO DAILY PRN losartan 100 mg PO QPM magnesium oxide 400 mg PO QPM metoprolol succinate ER 100 mg PO QPM omeprazole 20 mg PO QPM trazodone 100 mg PO BEDTIME HPI Comments Details: Pleasant middle-aged woman with the resistant hypertension as essentially normal renal function here for follow-up. Today she has no specific renal issues. She has chronic low back pain due to L4-L5 disease. She has had steroid injections with minimal improvement 02/28/24 Underwent back surgery December 18, 2023 ; Still with pain ; NO edema 05/08/24 ;Feels better ; Back on HCTZ 11/06/24 OVerall doing well. No new renal issues 04/16/25 s/p back surgery- no further back pain c/o leg pains- radiating down Had an episode of leg edema and subsided spontaneaously 05/07/25 The patient is a 70-year-old female presenting for a follow-up regarding hypertension and peripheral edema. Blood pressure is stable at 112/74 mmHg. No nausea, vomiting, or urinary issues reported. Leg swelling has resolved. Urine test showed no proteinuria. Weight stable at 151 pounds since October. Advised to monitor salt intake. DIAGNOSTIC RESULTS: - Urinalysis: No proteinuria, normal results [facility] Medical History Thrush Bronchitis Arthritis GERD (gastroesophageal reflux disease) Psoas mass Elevated cholesterol Chronic renal insufficiency Back pain HTN (hypertension) Surgical History History of back surgery (~12/2023) H/O colonoscopy Hx of excision of mass Hx of hemorrhoidectomy History of surgical removal of keloid Hx of tonsillectomy H/O: hysterectomy H/O section Family History Mother Mouth cancer Father Throat cancer Lung cancer Social History Household Members: Family Housing: House Are you a primary child day care provider to a significant other at home: No Do you presently have visiting nurse or other home services: No Alcohol intake: never Patient Tobacco Use Status: Former Tobacco user Tobacco use type: Cigarette service: No Physical Exam Vital Signs: Last Vital Signs Pulse 74 05/07/25 09:58 BP 112/74 05/07/25 09:58 Pulse Ox 98 05/07/25 09:58 BMI result Body Mass Index 26.7 Const General: comfortable; No acute distress Orientation/consciousness: patient oriented x3 Eyes General: appearance normal, both eyes and all related structures Visual Morin: normal visual morin by confrontation Neck Neck: Yes supple and Yes no JVD Resp Effort & Inspection: normal respiratory effort and respiratory effort not decreased Cardio Palpation: no palpable S3 and no palpable S4 Heart sounds: no rubs GI Inspection: Yes normal to inspection Palpation (GI): Soft to palpation Percussion: Yes normal to percussion Auscultation: normal bowel sounds General: Yes no CVA tenderness Back/Spine/Pelvis Back: no CVA tenderness Skin General skin exam: no petechiae and no purpura Neuro General: patient oriented x3 and no focal motor deficits Extrem General: No clubbing and No edema Results Reviewed Nephrology Results: Sodium, (135-145) 137 mmol/L 10/30/24 Potassium, (3.3-5.1) 3.5 mmol/L 10/30/24 Chloride, (96-108) 102 mmol/L 10/30/24 Carbon Dioxide, (22-29) 24 mmol/L 10/30/24 BUN, (9-16) 16 mg/dL 10/30/24 Creatinine, (0.5-1.4) 1.20 mg/dL 10/30/24 Calcium, (8.4-10.2) 9.9 mg/dL 10/30/24 Urine Protein, (Neg-Trace) Negative mg/dL 04/18/25 Urine Creatinine 146.87 mg/dL 04/18/25 Assessment & Plan Assessment & Plan (1) HTN (hypertension): Code(s): I10 - Essential (primary) hypertension Category: Medical Plan Middle-aged woman with resistant hypertension and essentially normal renal function. BP is acceptable No changes CKD 3 in a setting of HTN Creatinine stable at 1.2 Avoid nephrotoxins/NSAIDS Low salt diet Leg edema Resolved Will check urine for protein Orders: Orders Complete Blood Count no Diff Today I10 - Essential (primary) hypertension Basic Metabolic Panel 6 Months I10 - Essential (primary) hypertension Coding Level of Care Code Est Pt Level 4 (66488) Diagnoses HTN (hypertension) I10
--- OUTSIDE RECORDS SUMMARY | 2025-05-07 10:43 | XMS_ITS | Encounter Summary ---
Author Organization [facility] Address [address] [place] [address] Care Team Providers Care Foreign Student Adviser Name Role Phone Laury Cartagena MD Primary Care Provider Encounter Details Date Type Department Care Team (Late Contact Info) Description 04/01/2025 Telephone Internal Medicine [facility] [address] [phone] Laury Cartagena MD [address] [phone] Social History Tobacco Use Types [...] 11:15 AM EST Office Visit Internal Medicine [facility] [address] [phone] Laury Cartagena MD [address] [phone] documented as of this encounter Visit Diagnoses Not on filedocumented in this encounter Additional Health Concerns Assessment Noted Time PHQ-9 Depression Total Score: 0 03/12/20 25 11:39 AM EDT documented as of this encounter Care Teams Foreign Student Adviser Relationship Specialty Start Date End Date Laury Cartagena MD [address] [place] [phone] PCP - General Internal Medicine 07/19/18 documented as of this encounter
--- OUTSIDE RECORDS SUMMARY | 2025-05-07 10:43 | XMS_ITS | Clinical Summary ---
Author Organization [facility] Address [address] [facility] [address] [facility] [address] [place] [address] Care Team Providers Care Safety Admin Assistant Name Role Phone Laury Cartagena MD Primary Care Provider [phone] Allergies Active Allergy Reactions Criticality Noted [...] Type Department Care Team Description 02/28/2025 Telephone [facility] Neurology [address] [place] [address] [place] from Last 3 Months Social History [...] Insurance [employer] PREFERRED OTHER Care Teams Safety Admin Assistant Relationship Specialty Start Date End Date Laury Cartagena MD [address] [address] PCP - General Public Policy Mediator 10/17/23
--- OUTSIDE RECORDS SUMMARY | 2025-05-07 10:43 | XMS_ITS | Clinical Summary ---
Author Organization [facility] Address [address] [facility] [address] [place] [address] Phone Care Team Providers Care Balloon Artist Name Role Phone Laury Cartagena MD Primary Care Provider [phone] Allergies Active Allergy Reactions Criticality Noted Date [...] Insurance [employer] Medicare [employer] Medicare Care Teams Balloon Artist Relationship Specialty Start Date End Date Laury Cartagena MD [address] [place] [phone] PCP - General 09/28/20
== END 2025-05-07 10:08 | disposition home or self-care (01) ==
LOC: HO.HKAS 09:53
PROVIDERS: PCP Internal Medicine; Visit Provider Internal Medicine Hypertension Specialist
DX: I10 Essential (primary) hypertension (principal)
CPT/HCPCS: 99214

== ENCOUNTER 2025-05-07 09:53 | Outpatient (REF) | payer OTHER, SELFPAY ==
[2025-05-07 12:38] LABS: Hematocrit 39.5 % (37.0-47.0); Hemoglobin 12.4 g/dl (12.0-16.0); Mean Corpuscular HGB Conc 31.4 g/dl (31.0-35.0); Mean Corpuscular Hemoglobin 28.0 pg (27.0-33.0); Mean Corpuscular Volume 89.2 fL (80.0-98.0); NRBC Abs Auto 0.000 X10*3/uL (0.0-0.012); NRBC Pct Auto 0.0 /100WBC (0.0-0.2); Platelet Count 259 X10*3/uL (160-400); Red Blood Count 4.43 X10*6/uL (4.20-5.50); White Blood Count 4.6 X10*3/uL (4.8-10.8)
[2025-05-07 12:59] LABS: Anion Gap 12 (12-20); Blood Urea Nitrogen 16 mg/dL (9-16); Calcium 9.1 mg/dL (8.4-10.2); Carbon Dioxide 29 mmol/L (22-29); Chloride 103 mmol/L (96-108); Estimated Glomerular Filt Rate 41; Potassium 4.3 mmol/L (3.3-5.1); Sodium 140 mmol/L (135-145)
== END 2025-05-07 09:54 | disposition home or self-care (01) ==
LOC: HO.HKASLDS 09:53
PROVIDERS: PCP Internal Medicine; Visit Provider Internal Medicine Hypertension Specialist
DX: I12.9 Hypertensive chronic kidney disease with stage 1 through stage 4 chronic kidney disease, or unspecified chronic kidney disease (principal); N18.9 Chronic kidney disease, unspecified
CPT/HCPCS: 36415; 80048; 85027

== ENCOUNTER 2025-08-04 13:08 | Outpatient (REF) | payer OTHER, SELFPAY ==
[2025-08-04 18:38] LABS: Anion Gap 11 (12-20); Blood Urea Nitrogen 15 mg/dL (9-16); Calcium 9.9 mg/dL (8.4-10.2); Carbon Dioxide 28 mmol/L (22-29); Chloride 103 mmol/L (96-108); Estimated Glomerular Filt Rate 46; Potassium 4.3 mmol/L (3.3-5.1); Sodium 138 mmol/L (135-145)
== END 2025-08-04 13:09 | disposition home or self-care (01) ==
LOC: HO.HKASLDS 13:08
PROVIDERS: PCP Internal Medicine; Visit Provider Internal Medicine Hypertension Specialist
DX: I10 Essential (primary) hypertension (principal)
CPT/HCPCS: 36415; 80048

== ENCOUNTER 2025-08-06 11:56 | Outpatient (AMB) | payer OTHER, SELFPAY ==
--- NOTE | 2025-08-06 11:57 | HO.NEPHOV ---
Vital Signs 08/06/25 11:58 Height 5 ft 3 in Weight 146 lb BMI 25.9 BP 126/88 Blood Pressure Location Lt brachial Position Sitting Pulse 102 H Pulse Source Pulse Oximeter Pulse Oximetry (%) 96 Oxygen Delivery Method Room Air Intake Visit Reasons: 4mon f/u w/labs Broom Bundler Required: No Accompanied by: Self / Same As Patient Allergies lisinopril Adverse Reaction (Intermediate, Verified 08/06/25 12:00) Cough Medication List - Last Reconciled 08/06/25 by Espinoza Murrieta MD acetaminophen (Acetaminophen Extra Strength) 1,000 mg (2 x 500 mg) PO TID PRN albuterol sulfate 90 mcg/actuation 2 puffs inhalation Q4H PRN aspirin (Adult Aspirin Regimen) 81 mg PO QPM atorvastatin 20 mg PO BEDTIME clonidine HCl 0.2 mg PO BEDTIME cyclobenzaprine 10 mg PO TID cyclobenzaprine 5 mg PO BEDTIME PRN estradiol 2 mg PO .weekly gabapentin 300 mg PO TID hydrochlorothiazide 25 mg PO DAILY hydroxyzine HCl 25 mg PO TID PRN lorazepam 0.5 mg PO DAILY PRN losartan 100 mg PO QPM magnesium oxide 400 mg PO QPM metoprolol succinate ER 100 mg PO QPM omeprazole 20 mg PO QPM trazodone 100 mg PO BEDTIME HPI Comments Details: Pleasant middle-aged woman with the resistant hypertension as essentially normal renal function here for follow-up. Today she has no specific renal issues. She has chronic low back pain due to L4-L5 disease. She has had steroid injections with minimal improvement 02/28/24 Underwent back surgery December 18, 2023 ; Still with pain ; NO edema 05/08/24 ;Feels better ; Back on HCTZ 11/06/24 OVerall doing well. No new renal issues 04/16/25 s/p back surgery- no further back pain c/o leg pains- radiating down Had an episode of leg edema and subsided spontaneaously 05/07/25 The patient is a 70-year-old female presenting for a follow-up regarding hypertension and peripheral edema. Blood pressure is stable at 112/74 mmHg. No nausea, vomiting, or urinary issues reported. Leg swelling has resolved. Urine test showed no proteinuria. Weight stable at 151 pounds since October. Advised to monitor salt intake. DIAGNOSTIC RESULTS: - Urinalysis: No proteinuria, normal results 08/06/25 The patient is a 70-year-old female presenting for a follow-up visit regarding hypertension and mild chronic kidney disease. She reports a new primary complaint of feeling very tired, for which she has not yet seen her primary care doctor. She also notes right shoulder pain. Her current medications include hydrochlorothiazide, losartan, metoprolol, and clonidine taken twice daily. She reports no new medications. Previous issues with leg swelling have improved. Recent lab work confirmed that her kidney numbers are good, she does not have anemia, and her urine did not show any protein. She has a history of hyperlipidemia which has reportedly resolved. [facility] Medical History Thrush Bronchitis Arthritis GERD (gastroesophageal reflux disease) Psoas mass Elevated cholesterol Chronic renal insufficiency Back pain HTN (hypertension) Surgical History History of back surgery (~12/2023) H/O colonoscopy Hx of excision of mass Hx of hemorrhoidectomy History of surgical removal of keloid Hx of tonsillectomy H/O: hysterectomy H/O section Family History Mother Mouth cancer Father Throat cancer Lung cancer Social History Household Members: Family Housing: House Are you a primary home care aide to a significant other at home: No Do you presently have visiting nurse or other home services: No Alcohol intake: never Patient Tobacco Use Status: Former Tobacco user Tobacco use type: Cigarette service: No Physical Exam Vital Signs: Last Vital Signs Pulse 102 H 08/06/25 11:58 BP 126/88 08/06/25 11:58 Pulse Ox 96 08/06/25 11:58 Oxygen Delivery Method Room Air 08/06/25 11:58 BMI result Body Mass Index 25.9 Comfortable Neck supple no JVD. Lungs entry equal no rales. Heart S1-S2 heard no gallop or rub. Abdomen soft nontender. Neuro alert awake oriented. No asterixis. Extremities no edema. Results Reviewed Nephrology Results: Hgb, (12.0-16.0) 12.4 g/dl 05/07/25 WBC, (4.8-10.8) 4.6 X10*3/uL L 05/07/25 Plt Count, (160-400) 259 X10*3/uL 05/07/25 Sodium, (135-145) 138 mmol/L 08/04/25 Potassium, (3.3-5.1) 4.3 mmol/L 08/04/25 Chloride, (96-108) 103 mmol/L 08/04/25 Carbon Dioxide, (22-29) 28 mmol/L 08/04/25 BUN, (9-16) 15 mg/dL 08/04/25 Creatinine, (0.5-1.4) 1.16 mg/dL 08/04/25 Calcium, (8.4-10.2) 9.9 mg/dL Δ 08/04/25 Urine Protein, (Neg-Trace) Negative mg/dL 04/18/25 Urine Creatinine 146.87 mg/dL 04/18/25 Assessment & Plan Assessment & Plan (1) HTN (hypertension): Code(s): I10 - Essential (primary) hypertension Category: Medical Plan Middle-aged woman with resistant hypertension and essentially normal renal function. BP is acceptable CKD 3 in a setting of HTN Creatinine stable at 1.2 Avoid nephrotoxins/NSAIDS Low salt diet Leg edema Resolved No significant urine for protein Fatigue Needs work up Clonidine could be a contributing factor Will lower dose to 0.1 mg QHS Follow up with PCP for fatigue Orders: Orders Basic Metabolic Panel 4 Months I10 - Essential (primary) hypertension Medications: New clonidine HCl 0.1 mg PO BEDTIME 30 tabs 2RF Coding Level of Care Code Est Pt Level 4 (43211) Diagnoses HTN (hypertension) I10
[2025-08-06 11:58] VITALS: BP 126/88; PULSE 102; O2SAT 96; BMI 25.9
--- OUTSIDE RECORDS SUMMARY | 2025-08-06 23:08 | XMS_ITS | Clinical Summary ---
Author Organization [facility] Address [address] [place] [address] Phone Care Team Providers Care Lamination Technician Name Role Phone Laury Cartagena MD Primary Care Provider [phone] Allergies Active Allergy Reactions Criticality Noted Date [...] Years Used Date Smoking Tobacco: Former Cigarettes 0 Q uit: 09/18/1980 Smokeless Tobacco: Never Tobacco [...] Insurance [employer] Care Teams Lamination Technician Relationship Specialty Start Date End Date Laury Cartagena MD [address] [place] [id number] PCP - General 09/28/20
== END 2025-08-06 12:11 | disposition home or self-care (01) ==
LOC: HO.HKAS 11:56
PROVIDERS: PCP Internal Medicine; Visit Provider Internal Medicine Hypertension Specialist
DX: I10 Essential (primary) hypertension (principal)
CPT/HCPCS: 99214